=== PATIENT | male | born 1965 | race Caucasian/White ===

== ENCOUNTER 2017-12-30 08:10 | Emergency (ER) | payer BC ==
--- OUTSIDE RECORDS SUMMARY | 2017-12-30 08:25 | XMS REPORT ---
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 Payers Type Date Identification Numbers Payment Provider Subscriber Commercial Policy Number: [id number] [facility] Commercial [place] Keller PayID: [id number] [address] [address] TAMMIE Hinojosa [phone] Medigap Part B Effective: Policy Number: BCBS Ppo [place] Sánchez 2013 [id number] Krishna Expires: 2014 Group Number: [id number] [address] [address] PayID: [id number] TAMMIE Hinojosa [phone] Medigap Part B Effective: Policy Number: BCBS Ppo Stephenie Kuo 2013 [id number] Krishna Expires: 2013 PayID: [id number] [address] [address] TAMMIE Hinojosa [phone] Medigap Part B Expires: 2013 Policy Number: BCBS Ppo [place] Sánchez [id number] [facility] Number: [id number] [address] [address] PayID: [id number] TAMMIE Hinojosa [phone] Problems Date Description Provider Status Onset: 05/19/2010 Pure hypercholesterolemia Wayne Ng MD Active Family History Date Family Member(s) Problem(s) Comments Father Diabetes, Adult : (age Father due to Alcoholism DEMENTIA 77 Years) Father Alcoholism Father Anxiety Father Dementia Mother Cancer, Ovarian Mother due to Septicemia () - SECONDARY TO COLON PERFORATION SECONDARY TO RADIATION THERAPY FOR OVARIAN CA Mother Colectomy SECONDARY TO DIVERTICULITIS. Mother Diverticulitis Mother Kidney Disease Number of Children Children: 3 A&W. Number of Siblings Siblings: 4 A&W. 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 Cigarette Use Former cigarette smoker, smoked 1 pack a day for 14 years, former cigarette former: quit smoking at age [age] Resumed 10/06/16 quit again Alcohol Drinks alcohol occasionally, drinks 2-3 beers a day Drug Use Denies drug use Allergies, Adverse Reactions, Alerts Date Description Reaction Status Severity Comments 04/20/2006 NKDA active Medications Medication Date Status Form Strength Qnty SIG Indications Ordering Provider Alprazolam 07/10/ Active Tablets 0.25mg 30tab one-two by F41.9 Berenice, 2018 s mouth three MD Wayne times a day as needed Pantoprazole 04/20/ Active Tablets DR 40mg 90tab 1 by mouth Berenice Sodium 2018 s every day Mell, fill generic 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 before Mell, intercourse ENGINEERING ADMINISTRATOR as needed Ibuprofen 04/01/ Active Tablets 800mg 90tab 1 by mouth 846.0 Berenice 2016 s three times MD Wayne a day as needed. Epipen 2-Adrián 08/25/ Active Solution 0.3mg/0.3 1unit as directed Berenice 2014 Auto-Injec ML s MD Wayne t Chantix 04/01/ Hx Tablets 0.5mg 1star starter kit F17.200 Berenice 2016 - ter as directed. MD Wayne 2016 Chantix 04/01/ Hx Tablets 1mg 60tab 1 by mouth F17.200 Berenice 2016 - s twice a day MD Wayne 2016 Epi Pen 2 Pack 08/25/ Hx 1unit as directed Berenice 2014 - s for bee MD Wayne 08/25/ 2014 Xanax 08/25/ Hx Tablets 0.25mg 30tab one-two by F41.9 Berenice 2014 - s mouth three MD Wayne 07/10/ times a day 2018 as needed Chantix 07/07/ Hx Tablets 0.5mg 1tabs starter kit V70.0 Berenice 2014 - as directed. MD Wayne 2014 Chantix 07/07/ Hx Tablets 0.5mg 1tabs starter kit V70.0 Berenice 2014 - as directed. MD Wayne 2014 Viagra 04/21/ Hx Tablets 100mg 6tabs 1/2 & 1 tab 600.00 Berenice 2014 - as needed 1 MD Wayne 04/21/ hour before 2014 intercourse Lamisil 04/21/ Hx Tablets 250mg 84tab 1 by mouth Berenice, 2014 - s every day MD Wayne 2014 Chantix 04/21/ Hx Tablets 1mg 60tab 1 by mouth V70.0 Berenice, 2014 - s twice a day MD Wayne 2014 Xanax 04/21/ Hx Tablets 0.25mg 30tab one-two po 300.00 Berenice, 2014 - s tid prn MD Wayne 2014 Cialis 04/21/ Hx Tablets 20mg 6tabs /2 -1 q36h 600.00 Berenice 2014 - as needed MD Wayne 08/25/ 2014 sexual activity disregard previous rx please Acyclovir 12/24/ Hx Tablets 800mg Berenice, 2013 - MD Wayne 2013 Famciclovir 12/24/ Hx Tablets 500mg 21tab 1 by mouth Berenice, 2013 - s three times MD Wayne 12/25/ a day x 7 2013 days Zovirax 12/23/ Hx Cream 5% 5gm 5 x/day x 4 Berenice, 2013 - days MD Wayne 2013 Ibuprofen 01/18/ Hx Tablets 800mg 90tab 1 by mouth 846.0 Berenice 2012 - s three times MD Wayne 08/25/ a day as 2015 needed. Need Office Visit Before Next Refill Request Cialis 12/10/ Hx Tablets 5mg 30tab 1 by mouth 600.00 Berenice 2012 - s every day. MD Wayne 04/21/ Need Office 2014 Visit Before Next Refill Request Terbinafine HCL 10/08/ Hx Tablets 250mg 84tab 1 po qd 110.1 Berenice 2012 - s MD Wayne 2013 Chantix 10/08/ Hx Tablets 0.5mg 1tabs starter kit V70.0 Berenice 2012 - as directed. MD Wayne 2013 Chantix 10/08/ Hx Tablets 1mg 60tab 1 po bid V70.0 Berenice 2012 - sony Black MD 2013 Diflucan 08/01/ Hx Tablets 100mg 8tabs 2 PO Day 1 110.5 Berenice, 2012 - Then 1 PO qd MD Wayne 05/20/ X 6 Days 2013 Viagra 05/25/ Hx Tablets 100mg 6tabs 1/2 - 1 po 1 V41.7 Berenice, 2013 - hr. before Mell, 05/20/ ENGINEERING ADMINISTRATOR 2013 prn Cialis 05/23/ Hx Tablets 5mg 30tab 1 po qd Berenice 2012 - sony Black MD 2012 Motrin 11/10/ Hx Tablets 800mg 90tab 1 po q8h prn 846.0 Berenice, 2011 - s MD Wayne 2012 Zovirax 09/29/ Hx Cream 5% 5gm 5 x/day x 4 Berenice, 2011 - days Mell, 2013 Dicloxacillin 03/18/ Hx Capsules 500mg 20cap 1 po bid x Olrich, Sodium 2010 - s 10 days Kaila, ENGINEERING ADMINISTRATOR 2011 Viagra 09/28/ Hx Tablets 100mg 6tabs 1/2 - 1 po 1 V41.7 Berenice, 2010 - hr. before MD Wayne 2011 prn Diflucan 05/19/ Hx Tablets 100mg 8tabs 2 PO Day 1 110.5 Berenice, 2010 - Then 1 PO qd MD Wayne 03/18/ X 6 Days 2010 Lotrisone 02/04/ Hx Cream 1-0.05% 45gm apply bid to 110.5 Berenice 2009 - affected MD Wayne 03/18/ areas 2010 Ketoconazole 01/28/ Hx Cream 2% 60gm apply to 110.5 Berenice 2009 - affected MD Wayne 02/04/ area bid X 2 2009 Weeks Celebrex 06/30/ Hx Capsules 200mg 30cap 1 po bid 716.80 Berenice, 2008 - s MD Wayne 2008 Tramadol 10/17/ Hx Tablets 45tab 1-2 po q4h Elinor Ng/Allan 2007 - s prn MD Wayne cetaminophen 2008 Indocin 10/10/ Hx Capsules 50mg 30cap 1 po bid 846.0 Berenice 2006 - sony Black MD 2008 Flexeril 10/10/ Hx Tablets 10mg 20tab 1 po q hs 846.0 Berenice 2006 - s nelson Black MD 2008 Motrin 09/26/ Hx Tablets 800mg 90tab 1 po q8h prn 846.0 Berenice 2006 - sony Black MD 2011 Skelaxin 09/26/ Hx Tablets 800mg 30tab One Tab Q 846.0 Berenice, 2006 - s 6-8HR MD Wayne 2006 Bactrim DS 04/20/ Hx Tablets 160mg;800 60tab 1 PO bid 601.0 Berenice 2006 - mg sony Black MD 2006 Naprosyn 04/20/ Hx Tablets 500mg 30tab 1 PO bid pc 601.0 Berenice 2006 - sony Black MD 2006 Xanax 04/20/ Hx Tablets 0.25mg 30tab one-two po 300.00 Berenice 2006 - s tid nelson Black MD 2013 Protonix 02/21/ Hx Tablets DR 40mg 90tab 1 by mouth Berenice 2005 - s every day MD Wayne generic 2018 Diflucan 02/12/ Hx Tablets 100mg QS 1 1/2 Tabs Q Berenice 2004 - Week X 6 Mos MD Wayne 2006 Aspirin 02/08/ Hx Chewtabs 81mg 1 PO qd 272.0 Berenice 2004 - MD Wayne 2006 Mobic 10/28/ Hx Tablets 7.5mg 180ta one- two Berenice 2004 - bs daily with MD Wayne 2006 Protonix 10/20/ Hx Tablets 20mg 180ta 2 po qd Berenice 2003 - bs MD Wayne 2005 Xanax 07/06/ Hx Tablets 0.25mg 60tab one-two po Berenice 2003 - s tid prmiah Black MD 2006 Wellbutrin SR 07/06/ Hx Tablets 150mg 60tab 1 po bid Berenice 2003 - sony Black MD 2010 Prevacid 09/06/ Hx Caps 30mg 30cap 1 po qhs Berenice, 2002 - s MD Wayne 2003 Epi Pen 2 Pack 07/01/ Hx 1unit as directed Berenice 2002 - s for bee MD Wayne 2014 Wellbutrin 12/11/ Hx 75mg 120un 2 po bid Berenice, 2001 - its MD Wayne 2003 Indocin 12/11/ Hx 50mg 20uni 1 po bid pc Berenice, 2001 - ts prn MD Wayne 2004 Motrin 12/11/ Hx 800mg 90uni one po tid Berenice 2001 - ts with food do MD Wayne start 2004 untilafter completing indocin Medications Administered in Office Medication Date Status Form Strength Qnty SIG Indications Ordering Provider PPD Administered Injection Prabhakar Ng MD Immunizations CPT Code Status Date Vaccine Lot # [id number] Given 11/11/2011 Tdap (Adacel) Ages 7 And Above Only [id number] Given 04/22/2000 Immunization Td 7 Yrs Or Older [id number] Refused 12/25/2017 Influenza Vac, 3 Yrs & Older, Quadrivalent, Split, Im Use Vital Signs Date Vital Result Comment 12/25/2017 Body Temperature 97.3 F Weight 189.00 lb Heart Rate 54 /min BP Systolic 120 mmHg BP Diastolic 70 mmHg Respiratory Rate 17 /min Height 68.75 inches 5'8.75" O2 % BldC Oximetry 98 % BMI (Body Mass Index) 28.1 kg/m2 Urine Dipstick - Blood neg Urine Dipstick - Protein neg Urine Dipstick - Glucose neg Urine Dipstick - Leukocytes neg Left ear audiology results wnl Right ear audiology results wnl Right Visual Acuity Distance 20/25 Left Visual Acuity Distance 20/25 10/06/2016 Body Temperature 97.0 F Weight 200.00 lb Heart Rate 68 /min BP Systolic 124 mmHg BP Diastolic 90 mmHg BP Systolic Recheck 128 mmHg recheck BP Diastolic Recheck 88 mmHg recheck Height 68 inches 5'8" BMI (Body Mass Index) 30.4 kg/m2 04/01/2016 Weight 197.00 lb BP Systolic 122 mmHg BP Diastolic 84 mmHg Height 69 inches 5'9" BMI (Body Mass Index) 29.1 kg/m2 08/25/2014 Body Temperature 97.5 F Weight 201.00 lb Heart Rate 60 /min BP Systolic 140 mmHg BP Diastolic 76 mmHg BP Systolic Recheck 130 mmHg BP Diastolic Recheck 100 mmHg Height 69 inches 5'9" BMI (Body Mass Index) 29.7 kg/m2 Urine Dipstick - Blood NEGATIVE Leuko Negative Urine Dipstick - Protein NEGATIVE Urine Dipstick - Glucose NEGATIVE Left ear audiology results 20 db 04/21/2014 Weight 208.00 lb Heart Rate 64 /min BP Systolic 120 mmHg BP Diastolic 80 mmHg Height 70 inches 5'10" BMI (Body Mass Index) 29.8 kg/m2 06/14/2013 Body Temperature 97.6 F Weight 202.00 lb BP Systolic 118 mmHg BP Diastolic 72 mmHg 05/20/2013 Body Temperature 97.9 F Weight 204.00 lb Heart Rate 68 /min BP Systolic 130 mmHg BP Diastolic 72 mmHg 01/18/2013 Body Temperature 97.6 F Weight 150.00 lb BP Systolic 122 mmHg BP Diastolic 80 mmHg 12/10/2012 Weight 195.00 lb Heart Rate 60 /min BP Systolic 122 mmHg BP Diastolic 84 mmHg BMI (Body Mass Index) 29.9 kg/m2 Urine Dipstick - Blood NEGATIVE Urine Dipstick - Protein NEGATIVE Urine Dipstick - Glucose NEGATIVE 10/08/2012 Weight 291.00 lb BP Systolic 140 mmHg BP Diastolic 88 mmHg 11/11/2011 Body Temperature 97.8 F Weight 185.00 lb BP Systolic 120 mmHg BP Diastolic 80 mmHg Height 68.25 inches 5'8.25" BMI (Body Mass Index) 27.9 kg/m2 Urine Dipstick - Blood NEGATIVE leuks trace Urine Dipstick - Protein TRACE Urine Dipstick - Glucose NEGATIVE Right Visual Acuity Distance 20/20 hearing wnl Left Visual Acuity Distance 20/20 09/30/2011 Body Temperature 97.8 F Weight 188.00 lb BP Systolic 120 mmHg BP Diastolic 80 mmHg 03/18/2011 Body Temperature 97.6 F Weight 197.00 lb Heart Rate 66 /min BP Systolic 122 mmHg BP Diastolic 80 mmHg Height 69 inches 5'9" O2 % BldC Oximetry 99 % BMI (Body Mass Index) 29.1 kg/m2 02/28/2011 Body Temperature 97.2 F Weight 203.00 lb BP Systolic 124 mmHg BP Diastolic 76 mmHg 09/28/2010 Body Temperature 97.4 F Weight 199.00 lb BP Systolic 118 mmHg BP Diastolic 82 mmHg 05/19/2010 Weight 204.00 lb BP Systolic 128 mmHg BP Diastolic 74 mmHg 04/16/2010 Body Temperature 98.0 F Weight 204.00 lb Heart Rate 65 /min BP Systolic 145 mmHg BP Diastolic 93 mmHg Height 69 inches 5'9" O2 % BldC Oximetry 97 % BMI (Body Mass Index) 30.1 kg/m2 03/02/2010 Weight 204.00 lb Heart Rate 68 /min BP Systolic 140 mmHg BP Diastolic 90 mmHg Height 70.0 inches 5'10" BMI (Body Mass Index) 29.3 kg/m2 Urine Dipstick - Blood NEGATIVE Urine Dipstick - Protein NEGATIVE Urine Dipstick - Glucose NEGATIVE Right Visual Acuity Distance 20/20 Left Visual Acuity Distance 20/20 02/04/2010 Weight 205.00 lb BP Systolic 126 mmHg BP Diastolic 74 mmHg 01/28/2010 Weight 204.00 lb BP Systolic 122 mmHg BP Diastolic 88 mmHg 01/16/2009 Weight 193.00 lb BP Systolic 132 mmHg BP Diastolic 80 mmHg 08/12/2008 Weight 196.50 lb Heart Rate 66 /min BP Systolic 134 mmHg BP Diastolic 68 mmHg Height 69 inches 5'9" BMI (Body Mass Index) 29.0 kg/m2 Urine Dipstick - Blood NEGATIVE Urine Dipstick - Protein NEGATIVE Urine Dipstick - Glucose NEGATIVE Right Visual Acuity Distance 20/20 Left Visual Acuity Distance 20/20 06/30/2008 Weight 205.00 lb BP Systolic 128 mmHg BP Diastolic 82 mmHg Height 69 inches 5'9" BMI (Body Mass Index) 30.3 kg/m2 10/10/2006 Weight 191.00 lb Heart Rate 65 /min BP Systolic 148 mmHg BP Diastolic 96 mmHg Height 69 inches 5'9" BMI (Body Mass Index) 28.2 kg/m2 09/26/2006 Weight 194.00 lb Heart Rate 64 /min BP Systolic 126 mmHg BP Diastolic 93 mmHg Height 69 inches 5'9" BMI (Body Mass Index) 28.6 kg/m2 08/18/2006 Weight 194.00 lb Heart Rate 61 /min BP Systolic 127 mmHg BP Diastolic 86 mmHg Height 69 inches 5'9" BMI (Body Mass Index) 28.6 kg/m2 Urine Dipstick - Blood NEGATIVE Urine Dipstick - Protein NEGATIVE 25 Leucs Urine Dipstick - Glucose NEGATIVE Right Visual Acuity Distance 20/20 Left Visual Acuity Distance 20/20 04/20/2006 Body Temperature 97.4 F Weight 201.00 lb Heart Rate 62 /min BP Systolic 134 mmHg BP Diastolic 93 mmHg Height 69 inches 5'9" BMI (Body Mass Index) 29.7 kg/m2 Urine Dipstick - Blood NEGATIVE Urine Dipstick - Protein NEGATIVE Urine Dipstick - Glucose NEGATIVE Glucose Meter 93 04/20/2006 Weight 201.00 lb Height 69 inches 5'9" BMI (Body Mass Index) 29.7 kg/m2 02/08/2005 Body Temperature 98.7 F Weight 195.00 lb BP Systolic 150 mmHg BP Diastolic 70 mmHg BP Systolic Recheck 130 mmHg BP Diastolic Recheck 86 mmHg Height 69 inches 5'9" BMI (Body Mass Index) 28.8 kg/m2 Urine Dipstick - Blood NEGATIVE Urine Dipstick - Protein NEGATIVE Urine Dipstick - Glucose NEGATIVE Right Visual Acuity Distance 20/13 Left Visual Acuity Distance 20/13 10/28/2004 Weight 188.00 lb Heart Rate 58 /min BP Systolic 142 mmHg BP Diastolic 92 mmHg 07/07/2003 BP Systolic 129 mmHg BP Diastolic 80 mmHg Results Test Date Test Result H/L Range Note CBC with Auto Diff-fcmg 12/25/2017 WBC 6.3 K/uL 4.1-11.0 RBC 5.02 M/uL 4.60-6.10 Hemoglobin 15.4 gm/dL 13.5-18.0 Hematocrit 45.2 % 41.0-53.0 MCV 90.2 fL 80.0-97.0 MCH 30.6 pg 27.0-32.0 MCHC 33.9 g/dL 32.0-36.0 RDW 12.9 % 11.5-14.5 PLT Count 243 K/ul 140-400 MPV 7.9 FL 7.1-10.7 Neutrophil 68.1 % 35.0-75.0 Lymphocyte 17.6 % 16.0-52.0 Monocyte 11.4 % High 2.0-10.0 Eosinophil 2.3 % 0.0-5.0 Basophil 0.6 % 0.0-4.0 Abs Neutrophils 4.3 K/uL 2.1-8.0 Abs Lymphocytes 1.1 K/uL 0.8-5.5 Abs Monocytes 0.7 K/uL 0.1-1.0 Abs Eosinophils 0.1 K/uL 0.0-0.5 Abs Basophils 0.0 K/uL 0.0-0.3 Comprehensive Met Panel-[facility] 12/25/2017 Sodium 141 mmol/L 135-146 1 Potassium 4.7 mmol/L 3.5-5.2 Chloride# 103 mmol/L 97-110 2 Carbon Dioxide 28 mmol/L 24-34 Glucose 104 mg/dL 70-105 BUN 16 mg/dL 6-26 Creatinine 1.0 mg/dL 0.5-1.4 Calcium 10.0 mg/dL 8.5-10.2 Total Protein 7.3 g/dL 6.0-8.0 Albumin 4.6 g/dL 3.6-4.9 Globulin 2.7 g/dL 2.0-3.5 A/G Ratio 1.7 Ratio 1.0-2.2 Total Bilirubin 0.8 mg/dL 0.1-1.3 Alkaline Phosphatase 80 U/L 24-140 Alt 20 U/L 3-42 Ast 19 U/L 8-42 Sulema Egfr >60 >60 3 Non Sulema Egfr >60 >60 4 Anion Gap 10 mmol/L 5-15 5 Lipid 12/25/2017 Cholesterol 184 mg/dL 50-199 Triglycerides 56 mg/dL 30-200 HDL 84 mg/dL High -71 6 Chol/ HDL Ratio 2.2 ratio Low 4.0-6.7 VLDL 11 mg/dL 2-29 LDL (Calc) 89 mg/dL - 7 Laboratory test finding 12/25/2017 TSH 1.05 uIU/mL 0.35-4.94 PSA 1.010 ng/mL 0.000-4.000 8 Lipid 10/06/2016 Cholesterol 151 mg/dL 50-199 Triglycerides 47 mg/dL 30-200 HDL 76 mg/dL High 71 9 Chol/ HDL Ratio 2.0 ratio Low 4.0-6.7 VLDL 9 mg/dL 2-29 LDL (Calc) 65 mg/dL -99 10 Laboratory test finding 10/06/2016 TSH 0.90 uIU/mL 0.35-4.94 CBC With Auto Diff 10/06/2016 WBC 5.0 K/uL 4.1-11.0 RBC 4.95 M/uL 4.60-6.10 Hemoglobin 15.1 gm/dL 13.5-18.0 Hematocrit 44.4 % 41.0-53.0 MCV 89.7 fL 80.0-97.0 MCH 30.5 pg 27.0-32.0 MCHC 34.0 g/dL 32.0-36.0 RDW 12.7 % 11.5-14.5 PLT Count 254 K/ul 140-400 Neutrophil 56.3 % 35.0-75.0 Lymphocyte 23.2 % 16.0-52.0 Monocyte 16.0 % High 2.0-10.0 Eosinophil 3.5 % 0.0-5.0 Basophil 1.0 % 0.0-4.0 Abs Neutrophils 2.8 K/uL 2.1-8.0 Abs Lymphocytes 1.2 K/uL 0.8-5.5 Abs Monocytes 0.8 K/uL 0.1-1.0 Abs Eosinophils 0.2 K/uL 0.0-0.5 Abs Basophils 0.0 K/uL 0.0-0.3 Comprehensive Met Panel-[facility] 10/06/2016 Sodium 141 mmol/L 135-146 11 Potassium 4.6 mmol/L 3.5-5.2 Chloride# 105 mmol/L 97-110 12 Carbon Dioxide 25 mmol/L 24-34 Glucose 104 mg/dL 70-105 BUN 11 mg/dL 6-26 Creatinine 1.1 mg/dL 0.5-1.4 Calcium 9.5 mg/dL 8.5-10.2 Total Protein 7.0 g/dL 6.0-8.0 Albumin 4.3 g/dL 3.6-4.9 Globulin 2.7 g/dL 2.0-3.5 A/G Ratio 1.6 Ratio 1.0-2.2 Total Bilirubin 0.5 mg/dL 0.1-1.3 Alkaline Phosphatase 77 U/L 24-140 Alt 26 U/L 3-42 Ast 20 U/L 8-42 Sulema Egfr >60 >60 13 Non Sulema Egfr >60 >60 14 Anion Gap 16 mmol/L 7-16 15 Laboratory test finding 10/06/2016 PSA 0.580 ng/mL 0.000-4.000 16 Drugs of Abuse w/o 10/06/2016 Amphetamines,Urine Negative <1000 ng/mL [facility] [place] Barbiturates,Urine Negative <200 ng/mL Benzodiazepines, Urine Negative <200 ng/mL Bupernorphrine/Norbu,Urine Negative <10 ng/mL Cocaine Metabolites,Urine Negative <300 ng/mL Methadone,Urine Negative <300 ng/mL Opiates,Urine Negative <300 ng/mL Oxycodone,Urine Negative <100 ng/mL Phencyclidine,Urine Negative <25 ng/mL Hepatic Panel (LFT) 06/12/2015 Total Protein 6.7 g/dL 6.0-8.0 17 Albumin 4.2 g/dL 3.6-4.9 17 Total Bilirubin 0.5 mg/dL 0.1-1.3 17 Direct Bilirubin 0.1 mg/dL 0.0-0.4 17 Alkaline Phosphatase 63 U/L 24-140 17 Alt 36 U/L 3-42 17 Ast 19 U/L 8-42 17 Hepatic Panel (LFT) 08/25/2014 Total Protein 6.8 g/dL 6.0-8.0 18 Albumin 4.5 g/dL 3.6-4.9 18 Total Bilirubin 0.8 mg/dL 0.1-1.3 18 Direct Bilirubin 0.2 mg/dL 0.0-0.4 18 Alkaline Phosphatase 71 U/L 24-140 18 Alt 22 U/L 3-42 18 Ast 17 U/L 8-42 18 Laboratory test finding 08/25/2014 PSA 0.620 ng/mL 0.000-4.000 18, 19 CBC With Auto Diff 08/25/2014 WBC 4.4 K/uL 4.1-11.0 18 RBC 4.91 M/uL 4.60-6.10 18 Hemoglobin 15.4 gm/dL 13.5-18.0 18 Hematocrit 44.8 % 41.0-53.0 18 MCV 91.4 fL 80.0-97.0 18 MCH 31.3 pg 27.0-32.0 18 MCHC 34.3 g/dL 32.0-36.0 18 RDW 12.8 % 11.5-14.5 18 PLT Count 206 K/ul 140-400 18 Neutrophil 48.7 % 35.0-75.0 18 Lymphocyte 32.1 % 16.0-52.0 18 Monocyte 13.3 % High 2.0-10.0 18 Eosinophil 5.1 % High 0.0-5.0 18 Basophil 0.8 % 0.0-4.0 18 Abs Neutrophils 2.2 K/uL 2.1-8.0 18 Abs Lymphocytes 1.4 K/uL 0.8-5.5 18 Abmon 0.6 K/uL 0.1-1.0 18 Abs Eosinophils 0.2 K/uL 0.0-0.5 18 Abs Basophils 0.0 K/uL 0.0-0.3 18 Comprehensive Metabolic (CMP) 08/25/2014 Sodium 137 mmol/L 134-142 18 Potassium 4.1 mmol/L 3.5-5.2 18 Chloride 104 mmol/L 97-109 18 Carbon Dioxide 24 mmol/L 24-34 18 Glucose 79 mg/dL 70-105 18 BUN 16 mg/dL 6-26 18 Creatinine 1.0 mg/dL 0.5-1.4 18 Calcium 9.3 mg/dL 8.5-10.2 18 Total Protein 6.8 g/dL 6.0-8.0 18 Albumin 4.5 g/dL 3.6-4.9 18 Globulin 2.3 g/dL 2.0-3.5 18 A/G Ratio 2.0 Ratio 1.0-2.2 18 Total Bilirubin 0.8 mg/dL 0.1-1.3 18 Alkaline Phosphatase 71 U/L 24-140 18 Alt 22 U/L 3-42 18 Ast 17 U/L 8-42 18 Anion Gap 13 mmol/L 6-14 18 Sulema Egfr >60 >60 18, 20 Non Sulema Egfr >60 >60 18, 21 Lipid 08/25/2014 Cholesterol 142 mg/dL 50-199 18 Triglycerides 48 mg/dL 30-200 18 HDL 70 mg/dL 29-71 18, 22 Chol/ HDL Ratio 2.0 ratio Low 4.0-6.7 18 VLDL 10 mg/dL 2-29 18 LDL (Calc) 62 mg/dL 20-99 18, 23 Laboratory test finding 08/25/2014 TSH 0.98 uIU/mL 0.35-4.94 18 Hepatic Panel (LFT) 04/21/2014 Total Protein 7.0 g/dL 6.0-8.0 18 Albumin 4.6 g/dL 3.6-4.9 18 Total Bilirubin 0.7 mg/dL 0.1-1.3 18 Direct Bilirubin 0.2 mg/dL 0.0-0.4 18 Alkaline Phosphatase 53 U/L 24-140 18 Alt 14 U/L 3-42 18 Ast 15 U/L 8-42 18 Laboratory test 06/14/2013 Throat PO Culture SPECIMEN DESCRIP 24 finding <SEE NOTE> Laboratory test 12/10/2012 PSA 0.51 ng/mL 0.00-4.00 25, 26 finding Laboratory test 12/10/2012 Hepatitis C AB NEGATIVE (Neg) 25, 27 finding Lipid 12/10/2012 Cholesterol 147 mg/dL 50-199 25 Triglycerides 73 mg/dL 30-200 25 HDL 66 mg/dL 29-71 25, 28 Chol/ HDL Ratio 2.2 ratio Low 4.0-6.7 25 VLDL 15 mg/dL 2-29 25 LDL (Calc) 66 mg/dL 20-99 25, 29 Laboratory test finding 12/10/2012 TSH 1.39 uIU/mL 0.34-5.60 25 Comprehensive Metabolic (CMP) 12/10/2012 Sodium 138 mmol/L 134-142 25 Potassium 4.3 mmol/L 3.5-5.2 25 Chloride 104 mmol/L 97-109 25 Carbon Dioxide 26 mmol/L 24-34 25 Glucose 90 mg/dL 70-105 25 BUN 18 mg/dL 6-26 25 Creatinine 1.0 mg/dL 0.5-1.4 25 Calcium 9.4 mg/dL 8.5-10.2 25 Total Protein 6.6 g/dL 6.0-8.0 25 Albumin 4.3 g/dL 3.6-4.9 25 Globulin 2.3 g/dL 2.0-3.5 25 A/G Ratio 1.9 Ratio 1.0-2.2 25 Total Bilirubin 0.9 mg/dL 0.1-1.3 25 Alkaline Phosphatase 60 U/L 24-140 25 Alt 18 U/L 3-42 25 Ast 16 U/L 8-42 25 Anion Gap 12 mmol/L 6-14 25 Sulema Egfr >60 >60 25, 30 Non Sulema Egfr >60 >60 25, 31 CBC With Auto Diff 12/10/2012 WBC 5.0 K/uL 4.1-11.0 25 RBC 4.75 M/uL 4.60-6.10 25 Hemoglobin 14.5 gm/dL 13.5-18.0 25 Hematocrit 42.3 % 41.0-53.0 25 MCV 89.0 fL 80.0-97.0 25 MCH 30.6 pg 27.0-32.0 25 MCHC 34.3 g/dL 32.0-36.0 25 RDW 12.4 % 11.5-14.5 25 PLT Count 216 K/ul 140-400 25 Neutrophil 51.8 % 35.0-75.0 25 Lymphocyte 27.5 % 16.0-52.0 25 Monocyte 14.5 % High 2.0-10.0 25 Eosinophil 5.3 % High 0.0-5.0 25 Basophil 0.9 % 0.0-4.0 25 Abs Neutrophils 2.6 K/uL 2.1-8.0 25 Abs Lymphocytes 1.4 K/uL 0.8-5.5 25 Abs Monocytes 0.7 K/uL 0.1-1.0 25 Abs Eosinophils 0.3 K/uL 0.0-0.5 25 Abs Basophils 0.0 K/uL 0.0-0.3 25 Laboratory test finding 10/23/2012 Surgical Path [facility] SEE NOTE 32, 33 Hepatic Panel (LFT) 10/22/2012 Total Protein 6.3 g/dL 6.0-8.0 34 Albumin 4.2 g/dL 3.6-4.9 34 Total Bilirubin 0.6 mg/dL 0.1-1.3 34 Direct Bilirubin 0.1 mg/dL 0.0-0.4 34 Alkaline Phosphatase 54 U/L 24-140 34 Alt 21 U/L 3-42 34 Ast 16 U/L 8-42 34 Urinalysis 03/24/2012 Color YELLOW 35 Appearance CLEAR Spec Grav Urine 1.020 (1.003-1.030) PH Urine 7.5 (5.0-7.5) Leuk Esterase NEGATIVE (Neg) Nitrite Urine NEGATIVE (Neg) Protein Urine NEGATIVE (Neg) Glucose Urine NEGATIVE (Neg) Ketone Urine 2+ (Neg) Urobilinogen 0.2 mg/dL (0-1.0) Bilirubin Urine NEGATIVE (Neg) Blood/HGB Urine NEGATIVE (Neg) CBC W/Diff 03/24/2012 WBC 10.0 K/UL (4.1-11.0) RBC 4.80 M/UL (4.60-6.10) HGB 15.1 GM/DL (13.5-18.0) HCT 44.5 % (41.0-53.0) MCV 92.8 FL (80.0-95.0) MCH 31.4 pg (27.0-32.0) MCHC 33.8 g/dL (32.0-36.0) RDW 12.8 % (10.5-14.5) PLT 202 K/UL (150-400) MPV 7.9 FL (7.1-10.7) Neut % 85.7 % High (35.0-75.0) Lymph % 6.9 % Low (16.0-52.0) [place] % 6.4 % (0-8.0) Eos % 0.8 % (0-5.0) Baso % 0.2 % (0-4.0) Neut # 8.6 K/UL High (1.8-7.7) Lymph # 0.7 K/UL Low (1.2-4.8) [place] # 0.6 K/UL (0-0.8) Eos # 0.1 K/UL (0-0.5) Baso # 0.0 K/UL (0-0.2) CMP 03/24/2012 Sodium 142 mmol/L (136-145) Potassium 3.4 mmol/L Low (3.6-5.2) Chloride 106 mmol/L (100-108) Co2 28 mmol/L (22-31) Anion Gap 8 mmol/L (7-16) Urea Nitrogen 15 mg/dL (7-24) Creatinine 1.1 mg/dL (0.8-1.3) BUN/Creat Ratio 13.6 RATIO (10.0-20.0) Glucose 130 mg/dL High (70-99) Calcium 8.8 mg/dL (8.4-10.2) Total Protein 7.2 g/dL (6.4-8.2) Albumin 4.0 g/dL (3.5-4.6) Globulin 3.2 g/dL (2.7-4.3) Alb/Glob Ratio 1.3 RATIO Alkaline Phosphatase 91 U/L (50-136) Bilirubin,Total 0.5 mg/dL (0.0-1.0) Ast (Sgot) 24 U/L (11-39) Alt (SGPT) 50 U/L (25-69) GFR 76 ML/MIN/1.73M2 (>59) GFR ( Amer) >90 ML/MIN/1.73M2 (>59) GFR Interpretation <SEE NOTE> 36 Laboratory test finding 03/24/2012 Lipase 112 U/L (65-230) Troponin I <0.06 NG/ML (0.00-0.10) 37 CBC With Auto Diff 11/11/2011 WBC 4.6 K/uL 4.1-11.0 38 RBC 5.04 M/uL 4.60-6.10 38 Hemoglobin 15.6 gm/dL 13.5-18.0 38 Hematocrit 46.3 % 41.0-53.0 38 MCV 91.9 fL 80.0-97.0 38 MCH 31.0 pg 27.0-32.0 38 MCHC 33.7 g/dL 32.0-36.0 38 RDW 12.6 % 11.5-14.5 38 PLT Count 215 K/ul 140-400 38 Neutrophil 51.9 % 35.0-75.0 38 Lymphocyte 30.2 % 16.0-52.0 38 Monocyte 12.6 % High 2.0-10.0 38 Eosinophil 4.5 % 0.0-5.0 38 Basophil 0.8 % 0.0-4.0 38 Abs Neutrophils 2.4 K/uL 2.1-8.0 38 Abs Lymphocytes 1.4 K/uL 0.8-5.5 38 Abs Monocytes 0.6 K/uL 0.1-1.0 38 Abs Eosinophils 0.2 K/uL 0.0-0.5 38 Abs Basophils 0.0 K/uL 0.0-0.3 38 Comprehensive Metabolic (CMP) 11/11/2011 Sodium 140 mmol/L 134-142 38 Potassium 4.4 mmol/L 3.5-5.2 38 Chloride 102 mmol/L 97-109 38 Carbon Dioxide 29 mmol/L 24-34 38 Glucose 90 mg/dL 70-105 38 BUN 14 mg/dL 6-26 38 Creatinine 1.1 mg/dL 0.5-1.4 38 Calcium 9.6 mg/dL 8.5-10.2 38 Total Protein 7.1 g/dL 6.0-8.0 38 Albumin 4.7 g/dL 3.6-4.9 38 Globulin 2.4 g/dL 2.0-3.5 38 A/G Ratio 2.0 Ratio 1.0-2.2 38 Total Bilirubin 0.7 mg/dL 0.1-1.3 38 Alkaline Phosphatase 68 U/L 24-140 38 Alt 27 U/L 3-42 38 Ast 21 U/L 8-42 38 Anion Gap 13 mmol/L 6-14 38 Sulema Egfr >60 >60 38, 39 Non Sulema Egfr >60 >60 38, 40 Laboratory test finding 11/11/2011 TSH 1.36 uIU/mL 0.34-5.60 38 Lipid 11/11/2011 Cholesterol 153 mg/dL 50-199 38 Triglycerides 66 mg/dL 30-200 38 HDL 65 mg/dL 29-71 38, 41 Chol/ HDL Ratio 2.4 ratio Low 4.0-6.7 38 VLDL 13 mg/dL 2-29 38 LDL (Calc) 75 mg/dL 20-129 38, 42 CBC With Auto Diff 03/02/2010 WBC 5.3 K/ul 4.0-10.9 43 RBC 4.79 M/ul 4.70-6.10 43 Hemoglobin 15.3 GM/dl 13.5-18.0 43 Hematocrit 43.7 % 42.0-52.0 43 MCV 91.3 FL 80.0-97.0 43 MCH 31.8 pg High 27.0-31.0 43 MCHC 34.9 g/dL 32.0-36.0 43 RDW 12.6 % 11.5-14.5 43 Platelet Count 225 K/ul 140-440 43 Neutrophils 60.8 % 50-70 43 Lymphocytes 25.5 % 20-44 43 Monocytes 10.8 % High 2-9 43 Eosinophil 2.7 % 0-4 43 Basophil 0.2 % 0-2 43 Absolute Neutrophils 3.2 K/ul 2.05-7.63 43 Absolute Lymphocytes 1.3 K/ul 0.8-4.8 43 Absolute Monocytes 0.6 K/ul 0.1-1.0 43 Absolute Eosinophils 0.1 K/ul 0.1-0.5 43 Absolute Basophils 0.0 K/ul 0.0-0.3 43 Hematology Comment (Comm2) N/A 43 CMP 03/02/2010 Sodium 140 mmol/L 135-144 43 Potassium 4.5 mmol/L 3.6-5.2 43 Chloride 106 mmol/L 97-110 43 Carbon Dioxide 29 mmol/L 23-32 43 Glucose 91 mg/dL 70-105 43 BUN 11 mg/dL 6-22 43 Creatinine 1.0 mg/dL 0.5-1.3 43 BUN/CR 11 Ratio 43 Calcium 9.7 mg/dL 8.6-10.2 43 Total Protein 6.8 g/dL 5.8-7.8 43 Albumin 4.2 g/dL 3.5-4.8 43 Globulin 2.6 g/dL 2.0-3.5 43 A/G Ratio 1.6 Ratio 1.0-2.2 43 Total Bilirubin 0.6 mg/dL 0.3-1.2 43, 44 Alkaline Phosphatase 61 U/L 24-140 43 Alt 22 U/L 5-45 43 Ast 23 U/L 12-40 43 Anion Gap 10 mmol/L 8-16 43 GFR Calculation > 60 mL/min 60-175 43, 45 GFR For > 60 mL/min 60-175 43, 46 Laboratory test finding 03/02/2010 TSH 1.14 uIU/ml 0.34-5.60 43 Lipid Panel 03/02/2010 Cholesterol 152 mg/dL 50-199 43 Triglycerides 82 mg/dL 10-150 43 HDL 57 mg/dL 29-71 43, 47 Chol/HDL Ratio 2.7 Ratio Low 4.0-6.7 43, 48 VLDL 16 mg/dL 2-29 43 LDL (Calc) 79 mg/dL 20-129 43, 49 Lipid Panel 08/12/2008 Cholesterol 140 mg/dL 50-199 50 Triglycerides 31 mg/dL 10-150 50 HDL 82 mg/dL High 29-71 50, 51 Chol/HDL Ratio 1.7 Ratio Low 4.0-6.7 50, 52 VLDL 6 mg/dL 2-29 50 LDL (Calc) 52 mg/dL 20-129 50, 53 Laboratory test finding 08/12/2008 TSH 0.93 uIU/ml 0.34-5.60 50 CBC With Auto Diff 08/12/2008 WBC 5.0 K/ul 4.0-10.9 50 RBC 5.07 M/ul 4.70-6.10 50 Hemoglobin 15.8 GM/dl 13.5-18.0 50 Hematocrit 45.4 % 42.0-52.0 50 MCV 89.5 FL 80.0-97.0 50 MCH 31.1 pg High 27.0-31.0 50 MCHC 34.7 g/dL 32.0-36.0 50 RDW 13.3 % 11.5-14.5 50 Platelet Count 251 K/ul 140-440 50 Neutrophils 59.8 % 50-70 50 Lymphocytes 25.7 % 20-44 50 Monocytes 11.3 % High 2-9 50 Eosinophil 2.6 % 0-4 50 Basophil 0.6 % 0-2 50 Absolute Neutrophils 3.0 K/ul 2.05-7.63 50 Absolute Lymphocytes 1.3 K/ul 0.8-4.8 50 Absolute Monocytes 0.6 K/ul 0.1-1.0 50 Absolute Eosinophils 0.1 K/ul 0.1-0.5 50 Absolute Basophils 0.0 K/ul 0.0-0.3 50 Hematology Comment (Comm2) N/A 50 CMP 08/12/2008 Sodium 137 mmol/L 135-144 50 Potassium 4.2 mmol/L 3.6-5.2 50 Chloride 104 mmol/L 97-110 50 Carbon Dioxide 26 mmol/L 23-33 50 Glucose 91 mg/dL 70-105 50 BUN 9 mg/dL 6-22 50 Creatinine 1.0 mg/dL 0.5-1.3 50 BUN/CR 9 Ratio Low 12.0-20.0 50 Calcium 9.5 mg/dL 8.6-10.2 50 Total Protein 6.6 g/dL 5.8-7.8 50 Albumin 4.2 g/dL 3.5-4.8 50 Globulin 2.4 g/dL 2.0-3.5 50 A/G Ratio 1.8 Ratio 1.0-2.2 50 Total Bilirubin 1.0 mg/dL 0.3-1.2 50 Alkaline Phosphatase 80 U/L 24-140 50 Alt 30 U/L 4-45 50 Ast 28 U/L 12-40 50 Anion Gap 11 mmol/L 8-16 50 GFR Calculation > 60 mL/min 60-175 50, 54 GFR For > 60 mL/min 60-175 50, 55 Laboratory test finding 06/30/2008 Uric Acid 5.8 mg/dL 4.8-8.7 56 CBC 02/08/2005 WBC 4.5 K/ul 4.1-10.9 57 RBC 5.24 M/ul 4.20-6.30 57 Hemoglobin 15.7 GM/dl 12.0-16.0 57 Hematocrit 47.4 % 41.0-53.0 57 MCV 90.6 FL 80.0-97.0 57 MCH 30.0 pg 26.0-32.0 57 MCHC 33.1 g/dL 31.0-36.0 57 RDW 11.4 % Low 11.5-14.5 57 Platelet Count 254 K/ul 140-440 57 Neutrophils 53.8 % 50-70 57 Lymphocytes 28.2 % 20-44 57 Monocytes 13.5 % High 2-9 57 Eosinophil 3.8 % 0-4 57 Basophil 0.7 % 0-2 57 Absolute Neutrophils 2.4 K/ul 2.05-7.63 57 Absolute Lymphocytes 1.3 K/ul 0.8-4.8 57 Absolute Monocytes 0.6 K/ul 0.1-1.0 57 Absolute Eosinophils 0.2 K/ul 0.1-0.5 57 Absolute Basophils 0.0 K/ul Low 0.1-0.3 57 CMP 02/08/2005 Sodium 140 mmol/L 135-144 57 Potassium 4.4 mmol/L 3.6-5.2 57 Chloride 105 mmol/L 97-110 57 Carbon Dioxide 27 mmol/L 22-32 57 Glucose 75 mg/dL 70-105 57 BUN 17 mg/dL 6-22 57 Creatinine 1.0 mg/dL 0.5-1.3 57 BUN/CR 17 Ratio 12.0-20.0 57 Calcium 9.4 mg/dL 8.6-10.2 57 Total Protein 6.6 g/dL 5.8-7.8 57 Albumin 4.1 g/dL 3.5-4.8 57 Globulin 2.5 g/dL 2.0-3.5 57 A/G Ratio 1.6 Ratio 1.0-2.2 57 Total Bilirubin 1.0 mg/dL 0.3-1.2 57 Ast 18 U/L 12-40 57 Alt 19 U/L 4-45 57 Alkaline Phosphatase 66 U/L 24-108 57 Anion Gap 12 mmol/L 8-16 57 Laboratory test finding 02/08/2005 TSH 1.43 uIU/ml 0.50-6.00 57 Laboratory test finding 02/08/2005 PSA 0.69 ng/ml 0.00-4.00 57, 58 Lipid Panel 02/08/2005 Cholesterol 127 mg/dL 50-199 57 Triglycerides 67 mg/dL 10-150 57 HDL 50 mg/dL 29-71 57 Chol/HDL Ratio 2.5 Ratio 57 VLDL 13 mg/dL 57 LDL (Calc) 64 mg/dL 20-100 57 CMP 10/28/2004 Sodium 140 mmol/L 135-145 Potassium 3.9 mmol/L 3.4-5.3 Chloride 106 mmol/L 98-111 Carbon Dioxide 27 mmol/L 22-33 Glucose 83 mg/dL 70-105 BUN 18 mg/dL 6-26 Creatinine 1.1 mg/dL 0.5-1.5 BUN/CR 16 Ratio 12.0-20.0 Calcium 9.3 mg/dL 8.6-10.3 Total Protein 7.0 g/dL 6.2-8.3 Albumin 4.4 g/dL 3.5-5.0 Globulin 2.6 g/dL Low 2.7-4.3 A/G Ratio 1.7 Ratio 1.0-2.2 Total Bilirubin 0.8 mg/dL 0.1-1.3 Ast 18 U/L 8-42 Alt 17 U/L 3-42 Alkaline Phosphatase 73 U/L 24-108 Anion Gap 11 mmol/L 10-20 CBC 10/28/2004 WBC 6.4 K/ul 4.1-10.9 RBC 5.19 M/ul 4.20-6.30 Hemoglobin 15.8 GM/dl 12.0-16.0 Hematocrit 47.1 % 41.0-53.0 MCV 90.8 FL 80.0-97.0 MCH 30.5 pg 26.0-32.0 MCHC 33.6 g/dL 31.0-36.0 RDW 11.9 % 11.5-14.5 Platelet Count 266 K/ul 140-440 Neutrophils 55.1 % 50-70 Lymphocytes 28.5 % 20-44 Monocytes 12.3 % High 2-9 Eosinophil 3.4 % 0-4 Basophil 0.7 % 0-2 Absolute Neutrophils 3.6 K/ul 2.05-7.63 Absolute Lymphocytes 1.8 K/ul 0.8-4.8 Absolute Monocytes 0.8 K/ul 0.1-1.0 Absolute Eosinophils 0.2 K/ul 0.1-0.5 Absolute Basophils 0.0 K/ul Low 0.1-0.3 Laboratory test finding 12/11/2001 BUN 16 mg/dL 9-21 A43 Creatinine, Serum PENDING Lipid TX Panel 12/11/2001 Ast 18 U/L 17-59 Alt 22 U/L 21-72 Cholesterol 119 mg/dL 50-199 Triglycerides 88 mg/dL 30-249 HDL Cholesterol 60 mg/dL 29-67 LDL(Calc) 42 mg/dL 20-129 Chol/HDL Ratio 2.00 59 VLDL Cholesterol 18 mg/dL CBC 12/11/2001 WBC 5.0 K/ul 4.1-10.9 RBC 5.40 M/ul 4.2-6.3 Hemoglobin 15.9 GM/dl 12.0-16.0 Hematocrit 48.2 % 37.0-51.0 MCV 89.2 FL 80-97 MCH 29.4 pg 26.0-32.0 MCHC 32.9 g/dL 31.0-36.0 RDW 11.7 % 11.5-14.5 Platelet Count 260 K/ul 140-440 Neutrophils 57.8 % 50-70 Lymphocytes 25.0 % 20-44 Monocytes 12.6 % High 2-9 Eosinophil 3.3 % 0-4 Basophil 1.3 % 0-2 Absolute Neutrophils 2.9 K/ul 2.05-7.63 Absolute Lymphocytes 1.2 K/ul 0.8-4.8 Absolute Monocytes 0.6 K/ul 0.1-1.0 Absolute Eosinophils 0.2 K/ul 0.1-0.5 Absolute Basophils 0.1 K/ul 0.1-0.3 1 Updated reference range on new analyzer 2 Updated reference range on new analyzer 3 Concerning GFR Guidelines for Americans: Normal function or mild renal disease, if clinically at risk: >/=60 mL/min Moderately decreased: 30-59 Severely decreased: 15-29 Renal failure: <15 4 Concerning GFR Guidelines: Normal function or mild renal disease, if clinically at risk: >/=60 mL/min Moderately decreased: 30-59 Severely decreased: 15-29 Renal failure: <15 Glomerular Filtration Rate (GFR) is estimated based on the MDRD equation, which assumes a steady state for creatinine as recommended by the National Kidney Disease Education Program in conjunction with the National Institutes of Health and the National Kidney Foundation. Clinical conditions in which it may be necessary to measure GFR by using clearance methods include extremes of age and body size, severe malnutrition or obesity, diseases of skeletal muscle, paraplegia or quadriplegia, vegetarian diet, rapidly changing kidney function, and calculation of the dose of potentially toxic drugs that are excreted by the kidneys. 5 Updated Reference Range 6 Per NCEP ATP III Guidelines: Results lower than 40 mg/dL are suggestive of increased risk for coronary artery disease. Results > or=to 60 mg/dL are considered a negative risk factor. 7 Per NCEP ATP III Guidelines: Normal Population <130 Patients with medical conditions: CHD/DM Optimal: <100 Borderline high: 130-159 High: 160-189 Very high: >189 8 Beginning 05/15/06 PSA values assayed at [facility] uses chemiluminescence methodology manufactured by [facility] for use on the DXI analyzer. Values obtained with different assay methods or kits can not be used interchangeably. Serum PSA measurement is not an absolute test for malignancy. The PSA value should be used in conjunction with information available from clinical evaluation and other diagnostic procedures. 9 Per NCEP ATP III Guidelines: Results lower than 40 mg/dL are suggestive of increased risk for coronary artery disease. Results > or=to 60 mg/dL are considered a negative risk factor. 10 Per NCEP ATP III Guidelines: Normal Population <130 Patients with medical conditions: CHD/DM Optimal: <100 Borderline high: 130-159 High: 160-189 Very high: >189 11 Updated reference range on new analyzer 12 Updated reference range on new analyzer 13 Concerning GFR Guidelines for Americans: Normal function or mild renal disease, if clinically at risk: >/=60 mL/min Moderately decreased: 30-59 Severely decreased: 15-29 Renal failure: <15 14 Concerning GFR Guidelines: Normal function or mild renal disease, if clinically at risk: >/=60 mL/min Moderately decreased: 30-59 Severely decreased: 15-29 Renal failure: <15 Glomerular Filtration Rate (GFR) is estimated based on the MDRD equation, which assumes a steady state for creatinine as recommended by the National Kidney Disease Education Program in conjunction with the National Institutes of Health and the National Kidney Foundation. Clinical conditions in which it may be necessary to measure GFR by using clearance methods include extremes of age and body size, severe malnutrition or obesity, diseases of skeletal muscle, paraplegia or quadriplegia, vegetarian diet, rapidly changing kidney function, and calculation of the dose of potentially toxic drugs that are excreted by the kidneys. 15 Updated reference range on new analyzer 16 Beginning 05/15/06 PSA values assayed at [facility] uses chemiluminescence methodology manufactured by [facility] for use on the DXI analyzer. Values obtained with different assay methods or kits can not be used interchangeably. Serum PSA measurement is not an absolute test for malignancy. The PSA value should be used in conjunction with information available from clinical evaluation and other diagnostic procedures. [address] Granados please This sample is drawn by:may 18 This sample is drawn by:may 19 Beginning 05/15/06 PSA values assayed at [facility] uses an EIA methodology manufactured by [facility] for use on the DXI analyzer. Values obtained with different assay methods or kits can not be used interchangeably. Serum PSA measurement is not an absolute test for malignancy. The PSA value should be used in conjunction with information available from clinical evaluation and other diagnostic procedures. 20 Concerning GFR Guidelines for Americans: Normal function or mild renal disease, if clinically at risk: >/=60 mL/min Moderately decreased: 30-59 Severely decreased: 15-29 Renal failure: <15 21 Concerning GFR Guidelines: Normal function or mild renal disease, if clinically at risk: >/=60 mL/min Moderately decreased: 30-59 Severely decreased: 15-29 Renal failure: <15 Glomerular Filtration Rate (GFR) is estimated based on the MDRD equation, which assumes a steady state for creatinine as recommended by the National Kidney Disease Education Program in conjunction with the National Institutes of Health and the National Kidney Foundation. Clinical conditions in which it may be necessary to measure GFR by using clearance methods include extremes of age and body size, severe malnutrition or obesity, diseases of skeletal muscle, paraplegia or quadriplegia, vegetarian diet, rapidly changing kidney function, and calculation of the dose of potentially toxic drugs that are excreted by the kidneys. 22 Per NCEP ATP III Guidelines: Results lower than 40 mg/dL are suggestive of increased risk for coronary artery disease. Results > or=to 60 mg/dL are considered a negative risk factor. 23 Per NCEP ATP III Guidelines: Normal Population <130 Patients with medical conditions: CHD/DM Optimal: <100 Borderline high: 130-159 High: 160-189 Very high: >189 24 SPECIMEN DESCRIPTION THROAT SWAB CULTURE RESULTS NORMAL THROAT DEUCE NO BETA HEMOLYTIC STREPTOCOCCI ISOLATED REPORT STATUS FINAL 06/18/2013 25 This sample is drawn by:SS 26 Beginning 05/15/06 PSA values assayed at [facility] uses an EIA methodology manufactured by [facility] for use on the DXI analyzer. Values obtained with different assay methods or kits can not be used interchangeably. Serum PSA measurement is not an absolute test for malignancy. The PSA value should be used in conjunction with information available from clinical evaluation and other diagnostic procedures. 27 NOT INFECTED WITH HCV, UNLESS RECENT INFECTION IS SUSPECTED OR OTHER EVIDENCE EXISTS TO INDICATE HCV INFECTION. Unless otherwise specified, testing performed by [facility] [place] [address] [address] 28 Per NCEP ATP III Guidelines: Results lower than 40 mg/dL are suggestive of increased risk for coronary artery disease. Results > or=to 60 mg/dL are considered a negative risk factor. 29 Per NCEP ATP III Guidelines: Normal Population <130 Patients with medical conditions: CHD/DM Optimal: <100 Borderline high: 130-159 High: 160-189 Very high: >189 30 Concerning GFR Guidelines for Americans: Normal function or mild renal disease, if clinically at risk: >/=60 mL/min Moderately decreased: 30-59 Severely decreased: 15-29 Renal failure: <15 31 Concerning GFR Guidelines: Normal function or mild renal disease, if clinically at risk: >/=60 mL/min Moderately decreased: 30-59 Severely decreased: 15-29 Renal failure: <15 Glomerular Filtration Rate (GFR) is estimated based on the MDRD equation, which assumes a steady state for creatinine as recommended by the National Kidney Disease Education Program in conjunction with the National Institutes of Health and the National Kidney Foundation. Clinical conditions in which it may be necessary to measure GFR by using clearance methods include extremes of age and body size, severe malnutrition or obesity, diseases of skeletal muscle, paraplegia or quadriplegia, vegetarian diet, rapidly changing kidney function, and calculation of the dose of potentially toxic drugs that are excreted by the kidneys. 32 This sample is drawn by:sharonda FARRAR 33 [facility] [place] [address] Surgical Pathology Report Specimen(s) Received A: Left flank Clinical Diagnosis and History Uncertain neoplasm Gross Description Specimen received in formalin labeled with the patient's name is a 1.0 x 0.7 cm ellipse of schaefer skin excised to a depth of 0.4 cm. The skin surface has a 0.7 x 0.6 x 0.1 cm raised, circumscribed papule. The specimen is inked, sectioned and entirely submitted in one cassette. (The measurements of the specimen(s) may be less than those in vivo due to tissue shrinkage during histologic fixation and processing.) paw dme/jrf Diagnosis SKIN, LEFT FLANK, EXCISION BIOPSY: Seborrheic keratosis. Multiple levels examined. Technical component processed at [facility], Histopathology, [address] [place] [address], [place]. Diagnosis and reporting performed at [facility], [address] [place] [address]. Reported: 10/26/2012 12:03 Electronically Signed Out By Nic Cedillo M.D. paw ICD9 Codes A: 702.19 Unless otherwise specified, testing performed by [facility] [employer] [address] [address] 34 This sample is drawn by:[facility]LE[facility] [place] [address] 36 NORMAL KIDNEY FUNCTION OR MILD DISEASE - GFR >OR=60 CHRONIC KIDNEY DISEASE - GFR 15 - 59 RENAL FAILURE - GFR <15 Est. GFR calculation based on the MDRD study equation, which assumes a steady state for creatinine. Est. GFR should not be used for medication dosing. 37 TROPONIN LEVELS TWO TIMES THE UPPER LIMIT OF NORMAL ARE MORE PREDICTIVE OF MYOCARDIAL INJURY THAN LESSER ELEVATIONS. ([facility] 361:9, 2009) 38 This sample is drawn by:[facility] 39 Concerning GFR Guidelines for Americans: Normal function or mild renal disease, if clinically at risk: >/=60 mL/min Moderately decreased: 30-59 Severely decreased: 15-29 Renal failure: <15 40 Concerning GFR Guidelines: Normal function or mild renal disease, if clinically at risk: >/=60 mL/min Moderately decreased: 30-59 Severely decreased: 15-29 Renal failure: <15 Glomerular Filtration Rate (GFR) is estimated based on the MDRD equation, which assumes a steady state for creatinine as recommended by the National Kidney Disease Education Program in conjunction with the National Institutes of Health and the National Kidney Foundation. Clinical conditions in which it may be necessary to measure GFR by using clearance methods include extremes of age and body size, severe malnutrition or obesity, diseases of skeletal muscle, paraplegia or quadriplegia, vegetarian diet, rapidly changing kidney function, and calculation of the dose of potentially toxic drugs that are excreted by the kidneys. 41 Per NCEP ATP III Guidelines: Results lower than 40 mg/dL are suggestive of increased risk for coronary artery disease. Results > or=to 60 mg/dL are considered a negative risk factor. 42 Per NCEP ATP III Guidelines: Optimal: <100 Near optimal: 100-129 Borderline high: 130-159 High: 160-189 Very high: >189 43 FASTING 12 HOUR This sample is drawn by:ss 44 The difference between the most recent result of 1.0 and the current result of 0.6 exceeds the absolute delta value of 0.3 as defined for this test. 45 Concerning GFR GUIDELINES: Normal Function or Mild Renal Disease, if clinically at risk: >/=60mL/min Moderately decreased: 30-59 Severely decreased: 15-29 Renal Failure: <15 Glomerular Filtration Rate (GFR) is estimated based on the MDRD equation, which assumes a steady state for creatinine as recommended by the National Kidney Disease Education Program in conjunction with the National Institutes of Health and the National Kidney Foundation. Clinical conditions in which it may be necessary to measure GFR by using clearance methods include extremes of age and body size, severe malnutrition or obesity, diseases of skeletal muscle, paraplegia or quadriplegia, vegetarian diet, rapidly changing kidney function, and calculation of the dose of potentially toxic drugs that are excreted by the kidneys. 46 Concerning GFR GUIDELINES: Normal Function or Mild Renal Disease, if clinically at risk: >/=60mL/min Moderately decreased: 30-59 Severely decreased: 15-29 Renal Failure: <15 47 PER NCEP ATP III GUIDELINES: RESULTS LOWER THAN 40 MG/DL ARE SUGGESTIVE OF INCREASED RISK FOR CORONARY ARTERY DISEASE. RESULTS > OR=TO 60 MG/DL ARE CONSIDERED A NEGATIVE RISK FACTOR. 48 INTERPRETATION OF CHOL-HDL RATIO CHD RISK FEMALE MALE VERY HIGH >8.3 >14.3 HIGH 5.6 - 8.3 6.7 - 14.3 AVERAGE 3.7 - 5.6 4.0 - 6.7 BELOW AVERAGE 2.5 - 3.7 2.7 - 4.0 PROTECTED <2.5 <2.7 49 PER NCEP ATP III GUIDELINES: OPTIMAL: <100 NEAR OPTIMAL: 100 - 129 BORDERLINE HIGH: 130 - 159 HIGH: 160 - 189 VERY HIGH: >189 50 FASTING TSThis sample is drawn by: 51 PER NCEP ATP III GUIDELINES: RESULTS LOWER THAN 40 MG/DL ARE SUGGESTIVE OF INCREASED RISK FOR CORONARY ARTERY DISEASE. RESULTS > OR=TO 60 MG/DL ARE CONSIDERED A NEGATIVE RISK FACTOR. 52 INTERPRETATION OF CHOL-HDL RATIO CHD RISK FEMALE MALE VERY HIGH >8.3 >14.3 HIGH 5.6 - 8.3 6.7 - 14.3 AVERAGE 3.7 - 5.6 4.0 - 6.7 BELOW AVERAGE 2.5 - 3.7 2.7 - 4.0 PROTECTED <2.5 <2.7 53 PER NCEP ATP III GUIDELINES: OPTIMAL: <100 NEAR OPTIMAL: 100 - 129 BORDERLINE HIGH: 130 - 159 HIGH: 160 - 189 VERY HIGH: >189 54 Concerning GFR GUIDELINES: Normal Function or Mild Renal Disease, if clinically at risk: >/=60mL/min Moderately decreased: 30-59 Severely decreased: 15-29 Renal Failure: <15 Glomerular Filtration Rate (GFR) is estimated based on the MDRD equation, which assumes a steady state for creatinine as recommended by the National Kidney Disease Education Program in conjunction with the National Institutes of Health and the National Kidney Foundation. Clinical conditions in which it may be necessary to measure GFR by using clearance methods include extremes of age and body size, severe malnutrition or obesity, diseases of skeletal muscle, paraplegia or quadriplegia, vegetarian diet, rapidly changing kidney function, and calculation of the dose of potentially toxic drugs that are excreted by the kidneys. 55 Concerning GFR GUIDELINES: Normal Function or Mild Renal Disease, if clinically at risk: >/=60mL/min Moderately decreased: 30-59 Severely decreased: 15-29 Renal Failure: <15 56 This sample is drawn by:RASHAD 57 JEANNINE 245 PSA ADDED 02/08 [facility] CHARGE SLIP SENT TRIAGE [id number] PSA VALUES ASSAYED AT [facility] USES AN EIA METHODOLOGY MANUFACTURED BY [employer] FOR USE ON THE [employer]. VALUES OBTAINED WITH DIFFERENT ASSAY METHODS OR KITS CAN NOT BE USED INT ERCHANGEABLY. SERUM PSA MEASUREMENT IS NOT AN ABSOLUTE TEST FOR MALIGNANCY, THE PSA VALUE SHOULD BE USED IN CONJUNCTION WITH INFORMATION AVAILABLE FROM CLINICAL EVALUATION AND OTHER DIAGNOSTIC PROCEDURES. 59 Normal Range: Male: <4.98 Female: <4.45 Procedures Date CPT Code Description Status 12/25/2017 64731 Electrocardiogram Complete Completed 08/25/2014 82254 Screening Hearing Test Completed 09/26/2013 Colonoscopy Completed 12/10/2012 82473 Visual Screening Test Completed 12/10/2012 66381 Electrocardiogram Complete Completed 12/10/2012 76394 Screening Hearing Test Completed 10/23/2012 86438 Electrocardiogram Complete Completed 10/23/2012 94273 Excise Benign Lesion .6-1CM Trunk/Arm/Leg Completed 11/11/2011 76738 Screening Hearing Test Completed 11/11/2011 87206 Visual Screening Test Completed 11/11/2011 72034 Electrocardiogram Complete Completed 09/28/2010 79322 Remove Impacted Cerumen Requiring Instrumentation Completed 04/16/2010 14383 Laryngoscopy Flexible Fiberoptic Diagnostic Completed 03/02/2010 59861 Visual Screening Test Completed 03/02/2010 92699 Screening Hearing Test Completed 03/02/2010 94519 Electrocardiogram Complete Completed 08/12/2008 93045 Visual Screening Test Completed 08/12/2008 92371 Electrocardiogram Complete Completed 08/12/2008 56927 Screening Hearing Test Completed 08/18/2006 34352 Electrocardiogram Complete Completed 08/18/2006 06509 Pure Tone Audiometry, Air Completed 08/18/2006 43277 Screening Hearing Test Completed 02/24/2005 65365 Cardiovascular Stress Test Tracing Only Completed 02/24/2005 60964 Nuclear Myocardial Perfusion Study W/Ejection Fraction Completed 02/24/2005 98168 Nuclear Myocardial Perfusion Study W/Wall Motion Completed 02/24/2005 99390 Nuclear Spect. Imaging (Multi) At Rest/And/Or Stress Completed 02/08/2005 83454 Pure Tone Audiometry, Air Completed 02/08/2005 09464 Electrocardiogram Complete Completed 04/22/2000 73241 Electrocardiogram Complete Completed 04/22/2000 96397 Pure Tone Audiometry, Air Completed Encounters Type Date Location Provider CPT E/M Dx Office Visit 10/06/2016 2:00p [place] [address] F33.1 Z00.00 Z79.899 E78.00 Z12.5 Office Visit 04/01/2016 11:30[place] [address] F17.200 E78.00 K20.9 Office Visit 08/25/2014 10:30[place] [address] V58.69 V72.0 V72.19 305.1 V70.0 V77.0 V77.91 V58.69 110.1 V76.44 Office Visit 04/21/2014 9:00[place] [address] 110.1 V58.69 305.1 Office Visit 06/14/2013 3:15p [place] [address] 462 722.91 Office Visit 05/20/2013 2:00p [place] [address] 722.91 V72.84 V76.41 Office Visit 01/18/2013 9:00[place] [address] 847.0 722.91 Office Visit 12/10/2012 10:30[place] [address] V70.0 V77.0 V77.91 847.0 V04.81 553.8 602.9 600.00 389.9 305.1 V72.19 Office Visit 10/23/2012 2:15p [place] [address] 702.19 V72.83 Office Visit 10/08/2012 9:15[place] [address] 110.1 238.8 305.1 Office Visit 11/11/2011 9:30[place] [address] V70.0 V77.0 272.0 369.20 V03.7 550.90 V06.1 Office Visit 09/30/2011 11:30a Mell Evans, ENGINEERING ADMINISTRATOR 17337 382.9 Office Visit 03/18/2011 2:20p MD Maci Cherry Kimberly ENGINEERING ADMINISTRATOR 17507 785.6 380.4 327.23 Office Visit 02/28/2011 11:15[place] [address] 785.6 Office Visit 09/28/2010 2:15p [place] [address] 380.4 V41.7 Office Visit 05/19/2010 9:00[place] [address] 110.5 Office Visit 04/16/2010 9:00a MD Ariel Cherry Samira A, ENGINEERING ADMINISTRATOR 27603 327.23 784.49 478.5 Office Visit 03/02/2010 10:30[place] [address] 272.0 V70.0 716.80 V85.25 847.0 530.11 300.02 V58.69 Office Visit 02/04/2010 12:00[place] [address] 110.5 Office Visit 01/28/2010 1:00[place] [address] 110.5 785.1 Office Visit 08/12/2008 10:30[place] [address] V70.0 530.11 716.80 272.0 300.02 V58.69 Office Visit 06/30/2008 2:30p [place] [address] 716.80 Office Visit 10/10/2006 3:45p [place] [address] 846.0 Office Visit 09/26/2006 8:30[place] [address] 846.0 530.11 Office Visit 08/18/2006 10:30[place] [address] 300.00 V70.0 272.0 553.1 530.11 296.32 536.8 Office Visit 04/20/2006 1:00p [place] [address] 601.0 788.41 300.00 Office Visit 02/08/2005 2:00[place] [address] 272.0 553.1 V70.0 300.02 846.0 530.11 786.59 788.41 110.1 Office Visit 10/28/2004 1:45p [place] [address] 724.3 300.02 Office Visit 07/07/2003 2:00p [place] [address] 296.32 300.02 272.0 Office Visit 12/11/2001 8:00[place] [address] 272.0 V58.69 296.32 Office Visit 08/10/2001 11:45[place] [address] 846.0 530.11 296.32 Office Visit 12/23/2000 9:00a [place] [address] Office Visit 08/29/2000 10:30[place] [address] Office Visit 08/10/2000 1:00p [place] [address] Office Visit 07/27/2000 11:45a [place] [address] Office Visit 04/22/2000 11:00[place] [address] Office Visit 04/05/2000 2:00p [place] [address] Office Visit 03/27/2000 2:45p [place] [address] 296.32 Office Visit 03/15/2000 11:15[place] [address] 296.32 Office Visit 03/01/2000 3:30[place] [address] 840.9 Plan of Care 12/25/2017 - Wayne Ng MDZ68.28 Body mass index (BMI) 28.0-28.9, vxhwwP97.00 Encntr for general adult medical exam w/o abnormal findingsFollow up :Followup:.
--- OUTSIDE RECORDS SUMMARY | 2017-12-30 08:26 | XMS REPORT ---
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 Payers Type Date Identification Numbers Payment Provider Subscriber Commercial Policy Number: [id number] [facility] Commercial [place] Keller PayID: [id number] [address] [address] TAMMIE Hinojosa [phone] Medigap Part B Effective: Policy Number: BCBS Ppo Montana Sánchez 2013 [id number] Krishna Expires: 2014 Group Number: [id number] [address] [address] PayID: [id number] TAMMIE Hinojosa [phone] Medigap Part B Effective: Policy Number: BCBS Ppo Stephenie Kuo 2013 [id number] Krishna Expires: 2013 PayID: [id number] [address] [address] TAMMIE Hinojosa [address] Medigap Part B Expires: 2013 Policy Number: BCBS Ppo [place] Sánchez [id number] [facility] Number: [id number] [address] [address] PayID: [id number] TAMMIE Hinojosa [phone] Problems Date Description Provider Status Onset: 05/19/2010 [...] 2018 s every day Mell, fill generic 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 before Mell, intercourse DIRECTIONAL DRILLER as needed Ibuprofen 04/01/ Active Tablets 800mg [...] Berenice, 2013 - hr. before Mell, 05/20/ DIRECTIONAL DRILLER 2013 prn Cialis 05/23/ Hx Tablets 5mg [...] Sodium 2010 - s 10 days Kaila, DIRECTIONAL DRILLER 2011 Viagra 09/28/ Hx Tablets 100mg 6tabs [...] PO qd 272.0 Berenice 2004 - MD Wayen 2006 Mobic 10/28/ Hx Tablets 7.5mg 180ta [...] CPT Code Status Date Vaccine Lot # [id number] Given 11/11/2011 Tdap (Adacel) Ages 7 And Above Only [id number] Given 04/22/2000 Immunization Td 7 Yrs Or Older [id number] Refused 12/25/2017 Influenza Vac, 3 Yrs & [...] Test Date Test Result H/L Range Note Laboratory test finding 12/25/2017 TSH <pending> PSA <pending> Lipid 10/06/2016 Cholesterol 151 mg/dL 50-199 Triglycerides 47 mg/dL 30-200 HDL 76 mg/dL High 29-71 1 Chol/ HDL Ratio 2.0 ratio Low 4.0-6.7 VLDL 9 mg/dL 2-29 LDL (Calc) 65 mg/dL 20-99 2 Laboratory test finding 10/06/2016 TSH 0.90 uIU/mL [...] Abs Basophils 0.0 K/uL 0.0-0.3 [facility] 10/[facility]2016 Sodium 141 mmol/L 135-146 3 Potassium 4.6 mmol/L 3.5-5.2 Chloride# 105 mmol/L 97-110 4 Carbon Dioxide 25 mmol/L 24-34 Glucose 104 mg/dL 70-105 BUN 11 mg/dL 6-26 Creatinine 1.1 mg/dL 0.5-1.4 Calcium 9.5 mg/dL 8.5-10.2 Total Protein 7.0 g/dL 6.0-8.0 Albumin 4.3 g/dL 3.6-4.9 Globulin 2.7 g/dL 2.0-3.5 A/G Ratio 1.6 Ratio 1.0-2.2 Total Bilirubin 0.5 mg/dL 0.1-1.3 Alkaline Phosphatase 77 U/L 24-140 Alt 26 U/L 3-42 Ast 20 U/L 8-42 Sulema Egfr >60 >60 5 Non Sulema Egfr >60 >60 6 Anion Gap 16 mmol/L 7-16 7 Laboratory test finding 10/06/2016 PSA 0.580 ng/mL 0.000-4.000 8 Drugs of Abuse w/o [facility] [place]/06/2016 Amphetamines,Urine Negative <1000 ng/mL Barbiturates,Urine Negative <200 ng/mL Benzodiazepines, Urine Negative <200 ng/mL Bupernorphrine/Norbu,Urine Negative <10 ng/mL Cocaine Metabolites,Urine Negative <300 ng/mL Methadone,Urine Negative <300 ng/mL Opiates,Urine Negative <300 ng/mL Oxycodone,Urine Negative <100 ng/mL Phencyclidine,Urine Negative <25 ng/mL Hepatic Panel (LFT) 06/12/2015 Total Protein 6.7 g/dL 6.0-8.0 9 Albumin 4.2 g/dL 3.6-4.9 9 Total Bilirubin 0.5 mg/dL 0.1-1.3 9 Direct Bilirubin 0.1 mg/dL 0.0-0.4 9 Alkaline Phosphatase 63 U/L 24-140 9 Alt 36 U/L 3-42 9 Ast 19 U/L 8-42 9 Hepatic Panel (LFT) 08/25/2014 Total Protein 6.8 g/dL 6.0-8.0 10 Albumin 4.5 g/dL 3.6-4.9 10 Total Bilirubin 0.8 mg/dL 0.1-1.3 10 Direct Bilirubin 0.2 mg/dL 0.0-0.4 10 Alkaline Phosphatase 71 U/L 24-140 10 Alt 22 U/L 3-42 10 Ast 17 U/L 8-42 10 Laboratory test finding 08/25/2014 PSA 0.620 ng/mL 0.000-4.000 10, 11 CBC With Auto Diff 08/25/2014 WBC 4.4 K/uL 4.1-11.0 10 RBC 4.91 M/uL 4.60-6.10 10 Hemoglobin 15.4 gm/dL 13.5-18.0 10 Hematocrit 44.8 % 41.0-53.0 10 MCV 91.4 fL 80.0-97.0 10 MCH 31.3 pg 27.0-32.0 10 MCHC 34.3 g/dL 32.0-36.0 10 RDW 12.8 % 11.5-14.5 10 PLT Count 206 K/ul 140-400 10 Neutrophil 48.7 % 35.0-75.0 10 Lymphocyte 32.1 % 16.0-52.0 10 Monocyte 13.3 % High 2.0-10.0 10 Eosinophil 5.1 % High 0.0-5.0 10 Basophil 0.8 % 0.0-4.0 10 Abs Neutrophils 2.2 K/uL 2.1-8.0 10 Abs Lymphocytes 1.4 K/uL 0.8-5.5 10 Abmon 0.6 K/uL 0.1-1.0 10 Abs Eosinophils 0.2 K/uL 0.0-0.5 10 Abs Basophils 0.0 K/uL 0.0-0.3 10 Comprehensive Metabolic (CMP) 08/25/2014 Sodium 137 mmol/L 134-142 10 Potassium 4.1 mmol/L 3.5-5.2 10 Chloride 104 mmol/L 97-109 10 Carbon Dioxide 24 mmol/L 24-34 10 Glucose 79 mg/dL 70-105 10 BUN 16 mg/dL 6-26 10 Creatinine 1.0 mg/dL 0.5-1.4 10 Calcium 9.3 mg/dL 8.5-10.2 10 Total Protein 6.8 g/dL 6.0-8.0 10 Albumin 4.5 g/dL 3.6-4.9 10 Globulin 2.3 g/dL 2.0-3.5 10 A/G Ratio 2.0 Ratio 1.0-2.2 10 Total Bilirubin 0.8 mg/dL 0.1-1.3 10 Alkaline Phosphatase 71 U/L 24-140 10 Alt 22 U/L 3-42 10 Ast 17 U/L 8-42 10 Anion Gap 13 mmol/L 6-14 10 Sulema Egfr >60 >60 10, 12 Non Sulema Egfr >60 >60 10, 13 Lipid 08/25/2014 Cholesterol 142 mg/dL 50-199 10 Triglycerides 48 mg/dL 30-200 10 HDL 70 mg/dL 29-71 10, 14 Chol/ HDL Ratio 2.0 ratio Low 4.0-6.7 10 VLDL 10 mg/dL 2-29 10 LDL (Calc) 62 mg/dL 20-99 10, 15 Laboratory test finding 08/25/2014 TSH 0.98 uIU/mL 0.35-4.94 10 Hepatic Panel (LFT) 04/21/2014 Total Protein 7.0 g/dL 6.0-8.0 10 Albumin 4.6 g/dL 3.6-4.9 10 Total Bilirubin 0.7 mg/dL 0.1-1.3 10 Direct Bilirubin 0.2 mg/dL 0.0-0.4 10 Alkaline Phosphatase 53 U/L 24-140 10 Alt 14 U/L 3-42 10 Ast 15 U/L 8-42 10 Laboratory test 06/14/2013 Throat PO Culture SPECIMEN DESCRIP 16 finding <SEE NOTE> Laboratory test 12/10/2012 PSA 0.51 ng/mL 0.00-4.00 17, 18 finding Laboratory test 12/10/2012 Hepatitis C AB NEGATIVE (Neg) 17, 19 finding Lipid 12/10/2012 Cholesterol 147 mg/dL 50-199 17 Triglycerides 73 mg/dL 30-200 17 HDL 66 mg/dL 29-71 17, 20 Chol/ HDL Ratio 2.2 ratio Low 4.0-6.7 17 VLDL 15 mg/dL 2-29 17 LDL (Calc) 66 mg/dL 20-99 17, 21 Laboratory test finding 12/10/2012 TSH 1.39 uIU/mL 0.34-5.60 17 Comprehensive Metabolic (CMP) 12/10/2012 Sodium 138 mmol/L 134-142 17 Potassium 4.3 mmol/L 3.5-5.2 17 Chloride 104 mmol/L 97-109 17 Carbon Dioxide 26 mmol/L 24-34 17 Glucose 90 mg/dL 70-105 17 BUN 18 mg/dL 6-26 17 Creatinine 1.0 mg/dL 0.5-1.4 17 Calcium 9.4 mg/dL 8.5-10.2 17 Total Protein 6.6 g/dL 6.0-8.0 17 Albumin 4.3 g/dL 3.6-4.9 17 Globulin 2.3 g/dL 2.0-3.5 17 A/G Ratio 1.9 Ratio 1.0-2.2 17 Total Bilirubin 0.9 mg/dL 0.1-1.3 17 Alkaline Phosphatase 60 U/L 24-140 17 Alt 18 U/L 3-42 17 Ast 16 U/L 8-42 17 Anion Gap 12 mmol/L 6-14 17 Sulema Egfr >60 >60 17, 22 Non Sulema Egfr >60 >60 17, 23 CBC With Auto Diff 12/10/2012 WBC 5.0 K/uL 4.1-11.0 17 RBC 4.75 M/uL 4.60-6.10 17 Hemoglobin 14.5 gm/dL 13.5-18.0 17 Hematocrit 42.3 % 41.0-53.0 17 MCV 89.0 fL 80.0-97.0 17 MCH 30.6 pg 27.0-32.0 17 MCHC 34.3 g/dL 32.0-36.0 17 RDW 12.4 % 11.5-14.5 17 PLT Count 216 K/ul 140-400 17 Neutrophil 51.8 % 35.0-75.0 17 Lymphocyte 27.5 % 16.0-52.0 17 Monocyte 14.5 % High 2.0-10.0 17 Eosinophil 5.3 % High 0.0-5.0 17 Basophil 0.9 % 0.0-4.0 17 Abs Neutrophils 2.6 K/uL 2.1-8.0 17 Abs Lymphocytes 1.4 K/uL 0.8-5.5 17 Abs Monocytes 0.7 K/uL 0.1-1.0 17 Abs Eosinophils 0.3 K/uL 0.0-0.5 17 Abs Basophils 0.0 K/uL 0.0-0.3 17 Laboratory test finding 10/23/2012 Surgical Path [facility] SEE NOTE 24, 25 Hepatic Panel (LFT) 10/22/2012 Total Protein 6.3 g/dL 6.0-8.0 26 Albumin 4.2 g/dL 3.6-4.9 26 Total Bilirubin 0.6 mg/dL 0.1-1.3 26 Direct Bilirubin 0.1 mg/dL 0.0-0.4 26 Alkaline Phosphatase 54 U/L 24-140 26 Alt 21 U/L 3-42 26 Ast 16 U/L 8-42 26 Urinalysis 03/24/2012 Color YELLOW 27 Appearance CLEAR Spec Grav Urine 1.020 (1.003-1.030) [...] (35.0-75.0) Lymph % 6.9 % Low (16.0-52.0) Brooke % 6.4 % (0-8.0) Eos % 0.8 % (0-5.0) Baso % 0.2 % (0-4.0) Neut # 8.6 K/UL High (1.8-7.7) Lymph # 0.7 K/UL Low (1.2-4.8) Brooke # 0.6 K/UL (0-0.8) Eos # 0.1 [...] >90 ML/MIN/1.73M2 (>59) GFR Interpretation <SEE NOTE> 28 Laboratory test finding 03/24/2012 Lipase 112 U/L (65-230) Troponin I <0.06 NG/ML (0.00-0.10) 29 CBC With Auto Diff 11/11/2011 WBC 4.6 K/uL 4.1-11.0 30 RBC 5.04 M/uL 4.60-6.10 30 Hemoglobin 15.6 gm/dL 13.5-18.0 30 Hematocrit 46.3 % 41.0-53.0 30 MCV 91.9 fL 80.0-97.0 30 MCH 31.0 pg 27.0-32.0 30 MCHC 33.7 g/dL 32.0-36.0 30 RDW 12.6 % 11.5-14.5 30 PLT Count 215 K/ul 140-400 30 Neutrophil 51.9 % 35.0-75.0 30 Lymphocyte 30.2 % 16.0-52.0 30 Monocyte 12.6 % High 2.0-10.0 30 Eosinophil 4.5 % 0.0-5.0 30 Basophil 0.8 % 0.0-4.0 30 Abs Neutrophils 2.4 K/uL 2.1-8.0 30 Abs Lymphocytes 1.4 K/uL 0.8-5.5 30 Abs Monocytes 0.6 K/uL 0.1-1.0 30 Abs Eosinophils 0.2 K/uL 0.0-0.5 30 Abs Basophils 0.0 K/uL 0.0-0.3 30 Comprehensive Metabolic (CMP) 11/11/2011 Sodium 140 mmol/L 134-142 30 Potassium 4.4 mmol/L 3.5-5.2 30 Chloride 102 mmol/L 97-109 30 Carbon Dioxide 29 mmol/L 24-34 30 Glucose 90 mg/dL 70-105 30 BUN 14 mg/dL 6-26 30 Creatinine 1.1 mg/dL 0.5-1.4 30 Calcium 9.6 mg/dL 8.5-10.2 30 Total Protein 7.1 g/dL 6.0-8.0 30 Albumin 4.7 g/dL 3.6-4.9 30 Globulin 2.4 g/dL 2.0-3.5 30 A/G Ratio 2.0 Ratio 1.0-2.2 30 Total Bilirubin 0.7 mg/dL 0.1-1.3 30 Alkaline Phosphatase 68 U/L 24-140 30 Alt 27 U/L 3-42 30 Ast 21 U/L 8-42 30 Anion Gap 13 mmol/L 6-14 30 Sulema Egfr >60 >60 30, 31 Non Sulema Egfr >60 >60 30, 32 Laboratory test finding 11/11/2011 TSH 1.36 uIU/mL 0.34-5.60 30 Lipid 11/11/2011 Cholesterol 153 mg/dL 50-199 30 Triglycerides 66 mg/dL 30-200 30 HDL 65 mg/dL 29-71 30, 33 Chol/ HDL Ratio 2.4 ratio Low 4.0-6.7 30 VLDL 13 mg/dL 2-29 30 LDL (Calc) 75 mg/dL 20-129 30, 34 CBC With Auto Diff 03/02/2010 WBC 5.3 K/ul 4.0-10.9 35 RBC 4.79 M/ul 4.70-6.10 35 Hemoglobin 15.3 GM/dl 13.5-18.0 35 Hematocrit 43.7 % 42.0-52.0 35 MCV 91.3 FL 80.0-97.0 35 MCH 31.8 pg High 27.0-31.0 35 MCHC 34.9 g/dL 32.0-36.0 35 RDW 12.6 % 11.5-14.5 35 Platelet Count 225 K/ul 140-440 35 Neutrophils 60.8 % 50-70 35 Lymphocytes 25.5 % 20-44 35 Monocytes 10.8 % High 2-9 35 Eosinophil 2.7 % 0-4 35 Basophil 0.2 % 0-2 35 Absolute Neutrophils 3.2 K/ul 2.05-7.63 35 Absolute Lymphocytes 1.3 K/ul 0.8-4.8 35 Absolute Monocytes 0.6 K/ul 0.1-1.0 35 Absolute Eosinophils 0.1 K/ul 0.1-0.5 35 Absolute Basophils 0.0 K/ul 0.0-0.3 35 Hematology Comment (Comm2) N/A 35 CMP 03/02/2010 Sodium 140 mmol/L 135-144 35 Potassium 4.5 mmol/L 3.6-5.2 35 Chloride 106 mmol/L 97-110 35 Carbon Dioxide 29 mmol/L 23-32 35 Glucose 91 mg/dL 70-105 35 BUN 11 mg/dL 6-22 35 Creatinine 1.0 mg/dL 0.5-1.3 35 BUN/CR 11 Ratio 35 Calcium 9.7 mg/dL 8.6-10.2 35 Total Protein 6.8 g/dL 5.8-7.8 35 Albumin 4.2 g/dL 3.5-4.8 35 Globulin 2.6 g/dL 2.0-3.5 35 A/G Ratio 1.6 Ratio 1.0-2.2 35 Total Bilirubin 0.6 mg/dL 0.3-1.2 35, 36 Alkaline Phosphatase 61 U/L 24-140 35 Alt 22 U/L 5-45 35 Ast 23 U/L 12-40 35 Anion Gap 10 mmol/L 8-16 35 GFR Calculation > 60 mL/min 60-175 35, 37 GFR For > 60 mL/min 60-175 35, 38 Laboratory test finding 03/02/2010 TSH 1.14 uIU/ml 0.34-5.60 35 Lipid Panel 03/02/2010 Cholesterol 152 mg/dL 50-199 35 Triglycerides 82 mg/dL 10-150 35 HDL 57 mg/dL 29-71 35, 39 Chol/HDL Ratio 2.7 Ratio Low 4.0-6.7 35, 40 VLDL 16 mg/dL 2-29 35 LDL (Calc) 79 mg/dL 20-129 35, 41 Lipid Panel 08/12/2008 Cholesterol 140 mg/dL 50-199 42 Triglycerides 31 mg/dL 10-150 42 HDL 82 mg/dL High 29-71 42, 43 Chol/HDL Ratio 1.7 Ratio Low 4.0-6.7 42, 44 VLDL 6 mg/dL 2- 42 LDL (Calc) 52 mg/dL 20-129 42, 45 Laboratory test finding 08/12/2008 TSH 0.93 uIU/ml 0.34-5.60 42 CBC With Auto Diff 08/12/2008 WBC 5.0 K/ul 4.0-10.9 42 RBC 5.07 M/ul 4.70-6.10 42 Hemoglobin 15.8 GM/dl 13.5-18.0 42 Hematocrit 45.4 % 42.0-52.0 42 MCV 89.5 FL 80.0-97.0 42 MCH 31.1 pg High 27.0-31.0 42 MCHC 34.7 g/dL 32.0-36.0 42 RDW 13.3 % 11.5-14.5 42 Platelet Count 251 K/ul 140-440 42 Neutrophils 59.8 % 50-70 42 Lymphocytes 25.7 % 20-44 42 Monocytes 11.3 % High 2-9 42 Eosinophil 2.6 % 0-4 42 Basophil 0.6 % 0-2 42 Absolute Neutrophils 3.0 K/ul 2.05-7.63 42 Absolute Lymphocytes 1.3 K/ul 0.8-4.8 42 Absolute Monocytes 0.6 K/ul 0.1-1.0 42 Absolute Eosinophils 0.1 K/ul 0.1-0.5 42 Absolute Basophils 0.0 K/ul 0.0-0.3 42 Hematology Comment (Comm2) N/A 42 CMP 08/12/2008 Sodium 137 mmol/L 135-144 42 Potassium 4.2 mmol/L 3.6-5.2 42 Chloride 104 mmol/L 97-110 42 Carbon Dioxide 26 mmol/L 23-33 42 Glucose 91 mg/dL 70-105 42 BUN 9 mg/dL 6-22 42 Creatinine 1.0 mg/dL 0.5-1.3 42 BUN/CR 9 Ratio Low 12.0-20.0 42 Calcium 9.5 mg/dL 8.6-10.2 42 Total Protein 6.6 g/dL 5.8-7.8 42 Albumin 4.2 g/dL 3.5-4.8 42 Globulin 2.4 g/dL 2.0-3.5 42 A/G Ratio 1.8 Ratio 1.0-2.2 42 Total Bilirubin 1.0 mg/dL 0.3-1.2 42 Alkaline Phosphatase 80 U/L 24-140 42 Alt 30 U/L 4-45 42 Ast 28 U/L 12-40 42 Anion Gap 11 mmol/L 8-16 42 GFR Calculation > 60 mL/min 60-175 42, 46 GFR For > 60 mL/min 60-175 42, 47 Laboratory test finding 06/30/2008 Uric Acid 5.8 mg/dL 4.8-8.7 48 CBC 02/08/2005 WBC 4.5 K/ul 4.1-10.9 49 RBC 5.24 M/ul 4.20-6.30 49 Hemoglobin 15.7 GM/dl 12.0-16.0 49 Hematocrit 47.4 % 41.0-53.0 49 MCV 90.6 FL 80.0-97.0 49 MCH 30.0 pg 26.0-32.0 49 MCHC 33.1 g/dL 31.0-36.0 49 RDW 11.4 % Low 11.5-14.5 49 Platelet Count 254 K/ul 140-440 49 Neutrophils 53.8 % 50-70 49 Lymphocytes 28.2 % 20-44 49 Monocytes 13.5 % High 2-9 49 Eosinophil 3.8 % 0-4 49 Basophil 0.7 % 0-2 49 Absolute Neutrophils 2.4 K/ul 2.05-7.63 49 Absolute Lymphocytes 1.3 K/ul 0.8-4.8 49 Absolute Monocytes 0.6 K/ul 0.1-1.0 49 Absolute Eosinophils 0.2 K/ul 0.1-0.5 49 Absolute Basophils 0.0 K/ul Low 0.1-0.3 49 CMP 02/08/2005 Sodium 140 mmol/L 135-144 49 Potassium 4.4 mmol/L 3.6-5.2 49 Chloride 105 mmol/L 97-110 49 Carbon Dioxide 27 mmol/L 22-32 49 Glucose 75 mg/dL 70-105 49 BUN 17 mg/dL 6-22 49 Creatinine 1.0 mg/dL 0.5-1.3 49 BUN/CR 17 Ratio 12.0-20.0 49 Calcium 9.4 mg/dL 8.6-10.2 49 Total Protein 6.6 g/dL 5.8-7.8 49 Albumin 4.1 g/dL 3.5-4.8 49 Globulin 2.5 g/dL 2.0-3.5 49 A/G Ratio 1.6 Ratio 1.0-2.2 49 Total Bilirubin 1.0 mg/dL 0.3-1.2 49 Ast 18 U/L 12-40 49 Alt 19 U/L 4-45 49 Alkaline Phosphatase 66 U/L 24-108 49 Anion Gap 12 mmol/L 8-16 49 Laboratory test finding 02/08/2005 TSH 1.43 uIU/ml 0.50-6.00 49 Laboratory test finding 02/08/2005 PSA 0.69 ng/ml 0.00-4.00 49, 50 Lipid Panel 02/08/2005 Cholesterol 127 mg/dL 50-199 49 Triglycerides 67 mg/dL 10-150 49 HDL 50 mg/dL 29-71 49 Chol/HDL Ratio 2.5 Ratio 49 VLDL 13 mg/dL 49 LDL (Calc) 64 mg/dL 20-100 49 CMP 10/28/2004 Sodium 140 mmol/L 135-145 Potassium [...] LDL(Calc) 42 mg/dL 20-129 Chol/HDL Ratio 2.00 51 VLDL Cholesterol 18 mg/dL CBC 12/11/2001 WBC [...] 0.1-0.5 Absolute Basophils 0.1 K/ul 0.1-0.3 1 Per NCEP ATP III Guidelines: Results lower than 40 mg/dL are suggestive of increased risk for coronary artery disease. Results > or=to 60 mg/dL are considered a negative risk factor. 2 Per NCEP ATP III Guidelines: Normal Population <130 Patients with medical conditions: CHD/DM Optimal: <100 Borderline high: 130-159 High: 160-189 Very high: >189 3 Updated reference range on new analyzer 4 Updated reference range on new analyzer 5 Concerning GFR Guidelines for Americans: Normal function or mild renal disease, if clinically at risk: >/=60 mL/min Moderately decreased: 30-59 Severely decreased: 15-29 Renal failure: <15 6 Concerning GFR Guidelines: Normal function or mild [...] drugs that are excreted by the kidneys. 7 Updated reference range on new analyzer 8 Beginning 05/15/06 PSA values assayed at [facility] uses chemiluminescence methodology manufactured by [employer] for use on the DXI analyzer. Values obtained with different assay methods or kits can not be used interchangeably. Serum PSA measurement is not an absolute test for malignancy. The PSA value should be used in conjunction with information available from clinical evaluation and other diagnostic procedures. [address] Granados please This sample is drawn by:may 10 This sample is drawn by:may 11 Beginning 05/15/06 PSA values assayed at [facility] uses an EIA methodology manufactured by [employer] for use on the DXI analyzer. Values obtained with different assay methods or kits can not be used interchangeably. Serum PSA measurement is not an absolute test for malignancy. The PSA value should be used in conjunction with information available from clinical evaluation and other diagnostic procedures. 12 Concerning GFR Guidelines for Americans: Normal function or mild renal disease, if clinically at risk: >/=60 mL/min Moderately decreased: 30-59 Severely decreased: 15-29 Renal failure: <15 13 Concerning GFR Guidelines: Normal function or mild [...] drugs that are excreted by the kidneys. 14 Per NCEP ATP III Guidelines: Results lower than 40 mg/dL are suggestive of increased risk for coronary artery disease. Results > or=to 60 mg/dL are considered a negative risk factor. 15 Per NCEP ATP III Guidelines: Normal Population <130 Patients with medical conditions: CHD/DM Optimal: <100 Borderline high: 130-159 High: 160-189 Very high: >189 16 SPECIMEN DESCRIPTION THROAT SWAB CULTURE RESULTS NORMAL THROAT DEUCE NO BETA HEMOLYTIC STREPTOCOCCI ISOLATED REPORT STATUS FINAL 06/18/2013 17 This sample is drawn by:DUSTIN 18 Beginning 05/15/06 PSA values assayed at [facility] uses an EIA methodology manufactured by [employer] for use on the DXI analyzer. Values obtained with different assay methods or kits can not be used interchangeably. Serum PSA measurement is not an absolute test for malignancy. The PSA value should be used in conjunction with information available from clinical evaluation and other diagnostic procedures. 19 NOT INFECTED WITH HCV, UNLESS RECENT INFECTION IS SUSPECTED OR OTHER EVIDENCE EXISTS TO INDICATE HCV INFECTION. Unless otherwise specified, testing performed by [facility] [address] [address] 20 Per NCEP ATP III Guidelines: Results lower than 40 mg/dL are suggestive of increased risk for coronary artery disease. Results > or=to 60 mg/dL are considered a negative risk factor. 21 Per NCEP ATP III Guidelines: Normal Population <130 Patients with medical conditions: CHD/DM Optimal: <100 Borderline high: 130-159 High: 160-189 Very high: >189 22 Concerning GFR Guidelines for Americans: Normal function or mild renal disease, if clinically at risk: >/=60 mL/min Moderately decreased: 30-59 Severely decreased: 15-29 Renal failure: <15 23 Concerning GFR Guidelines: Normal function or mild [...] drugs that are excreted by the kidneys. 24 This sample is drawn by:sharnoda FARRAR 25 [facility] [place] [address] Surgical Pathology Report Specimen(s) Received A: Left [...] Multiple levels examined. Technical component processed at [facility], [facility], [address] [place] [address], [facility]. Diagnosis and reporting performed at [facility], [address] [place] [address]. Reported: 10/26/2012 12:03 Electronically Signed Out By Nic Cedillo M.D. paw ICD9 Codes A: 702.19 Unless otherwise specified, testing performed by [facility] [employer], [address] [address] 26 This sample is drawn by:KLEBER 27 PERFORMED AT [place] [address] 28 NORMAL KIDNEY FUNCTION OR MILD DISEASE - GFR >OR=60 CHRONIC KIDNEY DISEASE - GFR 15 - 59 RENAL FAILURE - GFR <15 Est. GFR calculation based on the MDRD study equation, which assumes a steady state for creatinine. Est. GFR should not be used for medication dosing. 29 TROPONIN LEVELS TWO TIMES THE UPPER LIMIT OF NORMAL ARE MORE PREDICTIVE OF MYOCARDIAL INJURY THAN LESSER ELEVATIONS. (LAJ 361:9, 2009) 30 This sample is drawn by:SUSANA 31 Concerning GFR Guidelines for Americans: Normal function or mild renal disease, if clinically at risk: >/=60 mL/min Moderately decreased: 30-59 Severely decreased: 15-29 Renal failure: <15 32 Concerning GFR Guidelines: Normal function or mild [...] drugs that are excreted by the kidneys. 33 Per NCEP ATP III Guidelines: Results lower than 40 mg/dL are suggestive of increased risk for coronary artery disease. Results > or=to 60 mg/dL are considered a negative risk factor. 34 Per NCEP ATP III Guidelines: Optimal: <100 Near optimal: 100-129 Borderline high: 130-159 High: 160-189 Very high: >189 35 FASTING 12 HOUR This sample is drawn by:ss 36 The difference between the most recent result of 1.0 and the current result of 0.6 exceeds the absolute delta value of 0.3 as defined for this test. 37 Concerning GFR GUIDELINES: Normal Function or Mild [...] drugs that are excreted by the kidneys. 38 Concerning GFR GUIDELINES: Normal Function or Mild Renal Disease, if clinically at risk: >/=60mL/min Moderately decreased: 30-59 Severely decreased: 15-29 Renal Failure: <15 39 PER NCEP ATP III GUIDELINES: RESULTS LOWER THAN 40 MG/DL ARE SUGGESTIVE OF INCREASED RISK FOR CORONARY ARTERY DISEASE. RESULTS > OR=TO 60 MG/DL ARE CONSIDERED A NEGATIVE RISK FACTOR. 40 INTERPRETATION OF CHOL-HDL RATIO CHD RISK FEMALE MALE VERY HIGH >8.3 >14.3 HIGH 5.6 - 8.3 6.7 - 14.3 AVERAGE 3.7 - 5.6 4.0 - 6.7 BELOW AVERAGE 2.5 - 3.7 2.7 - 4.0 PROTECTED <2.5 <2.7 41 PER NCEP ATP III GUIDELINES: OPTIMAL: <100 NEAR OPTIMAL: 100 - 129 BORDERLINE HIGH: 130 - 159 HIGH: 160 - 189 VERY HIGH: >189 42 FASTING TSThis sample is drawn by: 43 PER NCEP ATP III GUIDELINES: RESULTS LOWER THAN 40 MG/DL ARE SUGGESTIVE OF INCREASED RISK FOR CORONARY ARTERY DISEASE. RESULTS > OR=TO 60 MG/DL ARE CONSIDERED A NEGATIVE RISK FACTOR. 44 INTERPRETATION OF CHOL-HDL RATIO CHD RISK FEMALE MALE VERY HIGH >8.3 >14.3 HIGH 5.6 - 8.3 6.7 - 14.3 AVERAGE 3.7 - 5.6 4.0 - 6.7 BELOW AVERAGE 2.5 - 3.7 2.7 - 4.0 PROTECTED <2.5 <2.7 45 PER NCEP ATP III GUIDELINES: OPTIMAL: <100 NEAR OPTIMAL: 100 - 129 BORDERLINE HIGH: 130 - 159 HIGH: 160 - 189 VERY HIGH: >189 46 Concerning GFR GUIDELINES: Normal Function or [...] drugs that are excreted by the kidneys. 47 Concerning GFR GUIDELINES: Normal Function or Mild Renal Disease, if clinically at risk: >/=60mL/min Moderately decreased: 30-59 Severely decreased: 15-29 Renal Failure: <15 48 This sample is drawn by:LP 49 JEANNINE 245 PSA ADDED 02/08 [facility] CHARGE SLIP SENT TRIAGE [id number] PSA VALUES ASSAYED [place] [facility] [place] [employer] USES AN EIA METHODOLOGY MANUFACTURED BY [employer] FOR USE ON THE NEXIA ANALYZER. VALUES OBTAINED WITH DIFFERENT ASSAY METHODS OR KITS CAN NOT BE USED INT ERCHANGEABLY. SERUM PSA MEASUREMENT IS NOT AN ABSOLUTE TEST FOR MALIGNANCY, THE PSA VALUE SHOULD BE USED IN CONJUNCTION WITH INFORMATION AVAILABLE FROM CLINICAL EVALUATION AND OTHER DIAGNOSTIC PROCEDURES. 51 Normal Range: Male: <4.98 Female: <4.45 Procedures Date CPT Code Description Status 12/25/2017 44900 Electrocardiogram Complete Completed 08/25/2014 28378 Screening Hearing Test Completed 09/26/2013 Colonoscopy Completed 12/10/2012 36658 Visual Screening Test Completed 12/10/2012 56397 Electrocardiogram Complete Completed 12/10/2012 26507 Screening Hearing Test Completed 10/23/2012 45653 Electrocardiogram Complete Completed 10/23/2012 76565 Excise Benign Lesion .6-1CM Trunk/Arm/Leg Completed 11/11/2011 95293 Screening Hearing Test Completed 11/11/2011 38956 Visual Screening Test Completed 11/11/2011 05237 Electrocardiogram Complete Completed 09/28/2010 79656 Remove Impacted Cerumen Requiring Instrumentation Completed 04/16/2010 36281 Laryngoscopy Flexible Fiberoptic Diagnostic Completed 03/02/2010 49758 Visual Screening Test Completed 03/02/2010 97866 Screening Hearing Test Completed 03/02/2010 68042 Electrocardiogram Complete Completed 08/12/2008 98687 Visual Screening Test Completed 08/12/2008 85577 Electrocardiogram Complete Completed 08/12/2008 25076 Screening Hearing Test Completed 08/18/2006 91761 Electrocardiogram Complete Completed 08/18/2006 55500 Pure Tone Audiometry, Air Completed 08/18/2006 22846 Screening Hearing Test Completed 02/24/2005 80557 Cardiovascular Stress Test Tracing Only Completed 02/24/2005 29152 Nuclear Myocardial Perfusion Study W/Ejection Fraction Completed 02/24/2005 04959 Nuclear Myocardial Perfusion Study W/Wall Motion Completed 02/24/2005 31248 Nuclear Spect. Imaging (Multi) At Rest/And/Or Stress Completed 02/08/2005 81794 [employer] T[employer] Audiometry, Air Completed 02/08/2005 86644 Electrocardiogram Complete Completed 04/22/2000 31580 Electrocardiogram Complete Completed 04/22/2000 42858 [employer]ometry, Air Completed Encounters Type Date Location Provider CPT E/M Dx Office Visit 10/06/2016 2:00[place] [address] F33.1 Z00.00 Z79.899 E78.00 Z12.5 Office Visit 04/01/2016 11:30[place] [address] F17.200 E78.00 K20.9 Office Visit 08/25/2014 10:30[place] [address] V58.69 V72.0 V72.19 305.1 V70.0 V77.0 V77.91 V58.69 110.1 V76.44 Office Visit 04/21/2014 9:00[place] [address] 110.1 V58.69 305.1 Office Visit 06/14/2013 3:15p [place] [address] 462 722.91 Office Visit 05/20/2013 2:00p [place] [address] 722.91 V72.84 V76.41 Office Visit 01/18/2013 9:00[place] [address] 847.0 722.91 Office Visit 12/10/2012 10:30[place] [address] V70.0 V77.0 V77.91 847.0 V04.81 553.8 602.9 600.00 389.9 305.1 V72.19 Office Visit 10/23/2012 2:15p [place] [address] 702.19 V72.83 Office Visit 10/08/2012 9:15[place] [address] 110.1 238.8 305.1 Office Visit 11/11/2011 9:30[place] [address] V70.0 V77.0 272.0 369.20 V03.7 550.90 V06.1 Office Visit 09/30/2011 11:30a Mell Evans [facility] 20652 382.9 Office Visit 03/18/2011 2:20[place] [address] 785.6 380.4 327.23 Office Visit 02/28/2011 11:15[place] [address] 785.6 Office Visit 09/28/2010 2:15[place] [address] 380.4 V41.7 Office Visit 05/19/2010 9:00[place] [address] 110.5 Office Visit 04/16/2010 9:00a MD Ariel Cherry Lori A, [employer] 46945 327.23 784.49 478.5 Office Visit 03/02/2010 10:30[place] [address] 272.0 V70.0 716.80 V85.25 847.0 530.11 300.02 V58.69 Office Visit 02/04/2010 12:00[place] [address] 110.5 Office Visit 01/28/2010 1:00[place] [address] 110.5 785.1 Office Visit 08/12/2008 10:30[place] [address] V70.0 530.11 716.80 272.0 300.02 V58.69 Office Visit 06/30/2008 2:30[place] [address] 716.80 Office Visit 10/10/2006 3:45[place] [address] 846.0 Office Visit 09/26/2006 8:30[place] [address] 846.0 530.11 Office Visit 08/18/2006 10:30[place] [address] 300.00 V70.0 272.0 553.1 530.11 296.32 536.8 Office Visit 04/20/2006 1:00[place] [address] 601.0 788.41 300.00 Office Visit 02/08/2005 2:00[place] [address] 272.0 553.1 V70.0 300.02 846.0 530.11 786.59 788.41 110.1 Office Visit 10/28/2004 1:45p [place] [address] 724.3 300.02 Office Visit 07/07/2003 2:00[place] [address] 296.32 300.02 272.0 Office Visit 12/11/2001 8:00[place] [address] 272.0 V58.69 296.32 Office Visit 08/10/2001 11:45[place] [address] 846.0 530.11 296.32 Office Visit 12/23/2000 9:00[place] [address] Office Visit 08/29/2000 10:30[place] [address] Office Visit 08/10/2000 1:00p [place] [address] Office Visit 07/27/2000 11:45a [place] [address] Office Visit 04/22/2000 11:00[place] [address] Office Visit 04/05/2000 2:00p [place] [address] Office Visit 03/27/2000 2:45p [place] [address] 296.32 Office Visit 03/15/2000 11:15[place] [address] 296.32 Office Visit 03/01/2000 3:30[place] [address] 840.9 Plan of Care 12/25/2017 - Wayne Ng MDZ68.28 Body mass index (BMI) 28.0-28.9, ujjcnK66.00 Encntr for general adult medical exam w/o abnormal findingsFollow up :Followup:.
--- NOTE | 2017-12-30 08:47 | UC ---
Respiratory Complaint HPI - HPI Summary HPI Summary: 52 year old male with respiratory concern. Congestion and "burning, dry" cough for two to three days. Woke up this morning feeling like he can't clear chest congestion and subjective shortness of breath. Flu shot yesterday. Hoarse voice and loud inspiration. States he feels like he's trying to breath and swallow over a "hump" in his throat. He feels that the sensation of the hump in his throat is causing anxiety. He has no previous respiratory issues or medical concerns. He denies exposure to illness. He denies fevers or chills. He feels like he can take deep breaths but it feels like there is some mild swelling in his throat. His symptoms have been the same since he did wake up and have not rapidly worsened. [ End ] - History of Current Complaint Chief Complaint: UCRespiratory Stated Complaint: COUGH, CHEST CONGESTION Time Seen by Provider: 12/30/17 08:45 Hx Obtained From: Patient Onset/Duration: Sudden Onset Timing: Constant Severity Initially: Mild Severity Currently: Moderate Pain Intensity: 0 Associated Signs And Symptoms: Positive: Wheezing, Nasal Congestion, Hoarseness - Allergies/Home Medications Allergies/Adverse Reactions: Allergies Allergy/AdvReac Type Severity Reaction Status Date / Time bee venom protein (honey bee) Allergy Anaphylatic Verified 12/30/17 08:33 Shock Home Medications: Home Medications Dextromethorphan/Benzocaine [Cepacol Sorethroat-Cough Roxann] 1 each PO Q2H PRN [History Confirmed 12/30/17] EPINEPHrine [Epipen] 0.3 mg IM SEE INSTRUCTIONS PRN 12/30/17 [History Confirmed 12/30/17] Pantoprazole TAB (NF) [Protonix TAB (NF)] 40 mg PO DAILY 12/30/17 [History Confirmed 12/30/17] PMH/Surg Hx/FS Hx/Imm Hx Previously Healthy: Yes GI/ History: Gastroesophageal Reflux - Surgical History Surgical History: Yes Surgery Procedure, Year, and Place: Cervical Discectomy, ~2011, [place]; L4 L5 Discectomy, ~2007, [place]; L4 L5 Discectomy, ~2002, [place]; Umbilical and Inguinal Herniorrhaphies - Family History Known Family History: Positive: None - Social History Occupation: Employed Full-time Alcohol Use: Occasionally Substance Use Type: None Smoking Status (MU): Never Smoked Tobacco Review of Systems Constitutional: Fatigue ENT: Sore Throat, Ear Ache, Nasal Discharge, Sinus Congestion, Sinus Pain/ Tenderness Respiratory: Shortness Of Breath, Cough Psychological: Anxious Is Patient Immunocompromised?: No All Other Systems Reviewed And Are Negative: Yes Physical Exam - Summary Physical Exam Summary: No respiratory distress. Mild inspiratory stridor. Speaking in complete sentences. No diaphoresis. Mild anxiety secondary to the sensation of the "hump" when he inhaled. After his DuoNeb his lungs were clear and no wheezing present. The inspiratory stridor appeared improved. Triage Information Reviewed: Yes Appearance: Well-Appearing, No Pain Distress, Well-Nourished Vital Signs: Initial Vital Signs Temp 98.1 F 12/30/17 08:32 Pulse 60 12/30/17 08:32 Resp 18 12/30/17 08:32 BP 158/95 12/30/17 08:32 Pulse Ox 100 12/30/17 08:32 Vital Signs Reviewed: Yes Eye Exam: Normal ENT Exam: Normal ENT: Positive: Pharyngeal erythema, Nasal congestion, Nasal drainage, TMs normal , TM dull, Hoarse voice, Uvula midline. Negative: TM bulging, TM red, Tonsillar swelling, Tonsillar exudate, Muffled voice, Dental tenderness, Sinus tenderness Dental Exam: Normal Neck exam: Normal Neck: Positive: 1 Respiratory Exam: Normal Respiratory: Positive: Chest non-tender, No respiratory distress, No accessory muscle use, Stridor - upper lung sánchez, Wheezing - b/l lower lung sánchez. Negative: Decreased breath sounds Cardiovascular Exam: Normal Abdominal Exam: Normal Musculoskeletal Exam: Normal Neurological Exam: Normal Psychological Exam: Normal Skin Exam: Normal UC Diagnostic Evaluation - Laboratory O2 Sat by Pulse Oximetry: 100 Diagnostic Studies Comment: IMPRESSION: Some thickening of the epiglottis although it is not as dense as expected. No. prevertebral soft tissue is noted. Respiratory Course/Dx - Course Course Of Treatment: Patient with some symptoms of epiglottitis but also with some symptoms of croup with the cough present that is bark like (seal). Prior to getting x-ray he did receive 2 neb which did help his symptoms to breathe better. X-ray was reviewed showing possible epiglottitis but no other acute findings. Patient observed in the urgent care for greater than 1 hour and symptoms were not worsening and if anything her patient and they were improving. Stress upon discharge. 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 Streptococcal coinfection with a virus is possible so we will offer antibiotics. The would like to have this prescribed as well. The main treatment is airway protection and he should consider hospital for observation but based on his current symptoms and vital signs he declined and wants to monitor at home. In the slightest he will go to [facility] which is closer to his home in [place]. - Differential Dx/Diagnosis Differential Diagnosis/HQI/PQRI: Bronchitis, Exacerbation Of COPD, Influenza, Laryngitis, Lower Resp Infection Provider Diagnoses: Epiglottitis. Elevated blood pressure Discharge - Sign-Out/Discharge Documenting (check all that apply): Patient Departure All imaging exams completed and their final reports reviewed: Yes - Discharge Plan Condition: Good Disposition: HOME Prescriptions: Amoxicillin PO (*) [Amoxicillin 875 MG (*)] 875 mg PO BID 10 Days #20 tab predniSONE [Prednisone 20 MG TAB] 20 mg PO SEE INSTRUCTIONS #10 tablet Patient Education Materials: Epiglottitis (DC) Referrals: Wayne Ng MD [Primary Care Provider] - 1 Day Additional Instructions: IMPRESSION: Some thickening of the epiglottis although it is not as dense as expected. No prevertebral soft tissue is noted. We discussed at this time you are being diagnosed with epiglottitis. You have decided to monitor this at your home at this time but as we mentioned if your symptoms worsen in any way please go directly to the emergency room - Billing Disposition and Condition Condition: GOOD Disposition: Home
[2017-12-30] MEDS ORDERED: Albuterol/Ipratropium NEB.SOL* Albuterol 2.5 MG/Ipratropium 0.5 MG 3 ML INH ONE (08:54)
--- NOTE | 2017-12-30 09:45 | RAD ---
Indication: Stridor, cough and epiglottitis. 2 views of the chest including dual energy PA views are reviewed. No mediastinal shift is noted. Heart is of normal size and configuration. Lung sánchez are clear. IMPRESSION: No active cardiopulmonary disease is noted.
--- NOTE | 2017-12-30 09:46 | RAD ---
Indication: Stridor, cough. 2 views of the soft tissues of the neck demonstrates fusion of C4-C7. No prevertebral soft tissue swelling noted. There is some thickening of the epiglottis. IMPRESSION: Some thickening of the epiglottis although it is not as dense as expected. No prevertebral soft tissue is noted.
[2017-12-30 09:57] VITALS: BP 152/92
== END 2017-12-30 10:15 | disposition home or self-care (01) ==
LOC: UCCORT 08:10
DX: J05.10 Acute epiglottitis without obstruction (principal); R03.0 Elevated blood-pressure reading, without diagnosis of hypertension; K21.9 Gastro-esophageal reflux disease without esophagitis
CPT/HCPCS: 70360; 71046; 99202; A9270-GY; G0463